=== PATIENT | male | born 1990 | race Caucasian/White ===

== ENCOUNTER 2021-01-30 21:10 | Emergency (ER) | payer SELFPAY ==
[2021-01-30] MEDS ORDERED: TETRACAINE HCL 0.5% 4ML OPTH ONE (23:13)
[2021-01-30] MEDS ORDERED: FLUORESCEIN SODIUM 1 MG/WRAP ONE (23:13)
--- NOTE | 2021-01-30 23:30 | ER ---
Nurse's Notes [facility] Name: Arik Perez Age: 30 yrs Sex: Male : 1990 Arrival Date: 01/30/2021 Time: 21:19 Bed 18 Private MD: Diagnosis: Conjunctivitis Presentation: 01/30 21:36 Chief complaint: Patient states: My dog scratched my L eye yesterday evening. It's claw ca1 got into my eye, it's been tearing up and it hurts. Reports able to see on the L eye. Patch on L eye placed by pt [employer]. Coronavirus screen: Client denies travel out of the [place] in the last 14 days. At this time, the client does not indicate any symptoms associated with coronavirus-19. Ebola Screen: Patient negative for fever greater than or equal to 101.5 degrees Fahrenheit, and additional compatible Ebola Virus Disease symptoms Patient denies exposure to infectious person. Patient denies travel to an Ebola-affected area in the 21 days before illness onset. No symptoms or risks identified at this time. The patient denies any loss of vision. Initial Sepsis Screen: Does the patient meet any 2 criteria? No. Patient's initial sepsis screen is negative. Does the patient have a suspected source of infection? No. Patient's initial sepsis screen is negative. Risk Assessment: Do you want to hurt yourself or someone else? Patient reports no desire to harm self or others. Onset of symptoms was January 30, 2021. 21:36 Method Of Arrival: Ambulatory ca1 21:36 Acuity: TIMI 4 ca1 23:59 Mechanism of Injury: dog scratched eye. zb Historical: - Allergies: 21:38 Ibuprofen; ca1 - Home Meds: 21:38 None [Active]; ca1 - PMHx: 21:38 None; ca1 - PSHx: 21:38 Ear Tubes; ca1 - Immunization history:: Client reports having NOT received the Covid vaccine. Flu vaccine is up to date. - Social history:: Smoking status: Patient reports the use of cigarette tobacco products, smokes one-half pack cigarettes per day. Screenin:57 Abuse screen: Denies threats or abuse. Denies injuries from another. Nutritional zb screening: No deficits noted. Tuberculosis screening: No symptoms or risk factors identified. Fall Risk None identified. Assessment: 23:57 General: Appears in no apparent distress. uncomfortable, Behavior is calm, cooperative, zb appropriate for age. Pain: Complains of pain in left eye Pain currently is 4 out of 10 on a pain scale. Neuro: No deficits noted. Cardiovascular: No deficits noted. Respiratory: No deficits noted. GI: No deficits noted. : No deficits noted. EENT: Eyes are tearing on left eye Sclera/Cornea are reddened in left eye. Derm: Skin is intact, is healthy with good turgor, Skin is dry, Skin is normal, Skin temperature is warm. Musculoskeletal: Range of motion: intact in all extremities. Vital Signs: 21:36 BP 135 / 94; Pulse 87; Resp 16 S; Temp 98.5(TE); Pulse Ox 99% on R/A; Weight 61.23 kg ca1 (R); Height 5 ft. 11 in. (180.34 cm) (R); Pain 5/10; 21:36 Body Mass Index 18.83 (61.23 kg, 180.34 cm) ca1 Visual Acuity: 23:58 Left Eye Visual acuity 20/20, Pupil size 3 mm, Normal, Reactive To Accomodation; Right zb Eye Visual acuity 20/20, Pupil size 3 mm, Normal, Reactive To Accomodation; Both Eyes Visual acuity 20/20; Without Lenses; ED Course: 21:19 Patient arrived in ED. bp1 21:38 Triage completed. ca1 21:38 Arm band placed on right wrist. ca1 22:31 Lexii Menon FNP-C is [facility]. kb 22:31 Desmond Rojas MD is Attending Physician. kb 23:29 Malini Kumar RN is Primary Nurse. zb 23:58 Patient has correct armband on for positive identification. Pulse ox on. NIBP on. Door zb closed. Noise minimized. 23:59 No provider procedures requiring assistance completed. Patient did not have IV access zb during this emergency room visit. Administered Medications: 22:53 Drug: Tetracaine Drops 0.5 % 1 drops {Note: Administered by ECP .} Route: Ophthalmic; zb Site: left eye; 23:52 Not Given (Physician Discretion): Polysporin (bacitracin-polymyxin) Ointment 1 zb application Ophthalmic once 23:56 Drug: Tobrex (tobramycin) 0.3 % 1 application Route: Ophthalmic; Site: left eye; zb Outcome: 23:29 Discharge ordered by MD. fraser 23:59 Discharged to home ambulatory. pamela 23:59 Condition: stable 23:59 Discharge instructions given to patient, Instructed on discharge instructions, follow up and referral plans. medication usage, Demonstrated understanding of instructions, follow-up care, medications. 23:59 Patient left the ED. pamela Signatures: Lexii Menon, TREASURE-C BLOCK HAND-Jayde Celestin RN RN Lauren Lechuga Zipporah, RN RN pamela
--- NOTE | 2021-01-30 23:30 | EDPHYS ---
Physician Documentation [facility] Name: Arik Perez Age: 30 yrs Sex: Male : 1990 Arrival Date: 01/30/2021 Time: 21:19 Bed 18 Private MD: ED Physician Desmond Rojas HPI: 01/31 00:06 This 30 yrs old Male presents to ER via Ambulatory with complaints of Eye kb Injury, Dog Scratched Eye. 00:06 The patient is experiencing matting or discharge, redness, The patient sustained a kb scratch, to the left eye, caused by dog claw. Onset: The symptoms/episode began/occurred yesterday. Duration: the symptoms are continuous. Aggravated by nothing. Alleviated by nothing. Associated signs and symptoms: Pertinent positives: None. Patient does not utilize any form of vision correction. Severity of symptoms: At their worst the symptoms were moderate in the emergency department the symptoms are unchanged. The patient has not experienced similar symptoms in the past. The patient has not recently seen a physician. Pt reports his dog scratched him in the eye yesterday. Reports watering and redness to eye. No visual changes. Historical: - Allergies: 01/30 21:38 Ibuprofen; ca1 - Home Meds: 21:38 None [Active]; ca1 - PMHx: 21:38 None; ca1 - PSHx: 21:38 Ear Tubes; ca1 - Immunization history:: Client reports having NOT received the Covid vaccine. Flu vaccine is up to date. - Social history:: Smoking status: Patient reports the use of cigarette tobacco products, smokes one-half pack cigarettes per day. ROS: 01/31 00:09 Constitutional: Negative for fever, chills, and weight loss, ENT: Negative for injury, kb pain, and discharge, Skin: Negative for injury, rash, and discoloration, Neuro: Negative for headache, weakness, numbness, tingling, and seizure. Eyes: Positive for redness, tearing. Exam: 00:08 Visual Acuity: I have reviewed the nursing documentation. Visual acuity is within kb normal limits. 00:08 Constitutional: This is a well developed, well nourished patient who is awake, alert, and in no acute distress. Head/Face: Normocephalic, atraumatic. ENT: Moist Mucous membranes Respiratory: Respirations even and unlabored. No increased work of breathing, no retractions or nasal flaring. Skin: Warm, dry with normal turgor. Normal color. MS/ Extremity: Pulses equal, no cyanosis. Neurovascular intact. Full, normal range of motion. Neuro: Awake and alert, GCS 15, oriented to person, place, time, and situation. Moves all extremities. Normal gait. Psych: Awake, alert, with orientation to person, place and time. Behavior, mood, and affect are within normal limits. 00:08 Eyes: Periorbital structures: appear normal, Pupils: equal, round, and reactive to light and accomodation, Extraocular movements: intact throughout, Conjunctiva: injected, in the left eye, Corneas: abrasion, is not appreciated, foreign body, is not appreciated, a fluorescein strip employed to appreciate the findings. Vital Signs: 01/30 21:36 BP 135 / 94; Pulse 87; Resp 16 S; Temp 98.5(TE); Pulse Ox 99% on R/A; Weight 61.23 kg ca1 (R); Height 5 ft. 11 in. (180.34 cm) (R); Pain 5/10; 21:36 Body Mass Index 18.83 (61.23 kg, 180.34 cm) ca1 Visual Acuity: 23:58 Left Eye Visual acuity 20/20, Pupil size 3 mm, Normal, Reactive To Accomodation; Right zb Eye Visual acuity 20/20, Pupil size 3 mm, Normal, Reactive To Accomodation; Both Eyes Visual acuity 20/20; Without Lenses; MDM: 22:31 Patient medically screened. kb 23:28 Data reviewed: vital signs, nurses notes. Data interpreted: Pulse oximetry: on room air kb is 99 %. Interpretation: normal. Counseling: I had a detailed discussion with the patient and/or guardian regarding: the historical points, exam findings, and any diagnostic results supporting the discharge/admit diagnosis, the need for outpatient follow up, an opthalmologist, to return to the emergency department if symptoms worsen or persist or if there are any questions or concerns that arise at home. 01/30 22:32 Order name: Visual Acuity; Complete Time: 23:57 kb 01/30 22:32 Order name: Eye Tray; Complete Time: 22:54 kb 01/30 22:32 Order name: Fluoresene Opth strip; Complete Time: 22:54 kb Administered Medications: 22:53 Drug: Tetracaine Drops 0.5 % 1 drops {Note: Administered by ECP .} Route: Ophthalmic; zb Site: left eye; 23:52 Not Given (Physician Discretion): Polysporin (bacitracin-polymyxin) Ointment 1 zb application Ophthalmic once 23:56 Drug: Tobrex (tobramycin) 0.3 % 1 application Route: Ophthalmic; Site: left eye; zb Disposition: 01/31 11:43 Co-signature as Attending Physician, Desmond Rojas MD I agree with the assessment and [facility] plan of care. Disposition: 01/30/21 23:29 Discharged to Home. Impression: Conjunctivitis. - Condition is Stable. - Discharge Instructions: Bacterial Conjunctivitis, [id number]. - Medication Reconciliation Form, Thank You Letter, Antibiotic Education, Prescription Opioid Use form. - Follow up: Emergency Department; When: As needed; Reason: Worsening of condition. Follow up: Private Physician; When: 2 - 3 days; Reason: Recheck today's complaints, Continuance of care, Re-evaluation by your physician. Signatures: Lexii Menon, SPRINKLER TENDER-C SPRINKLER TENDER-Angelob Desmond Rojas MD MD cha Acob, Cheryl RN Malini Conrad RN RN zb Corrections: (The following items were deleted from the chart) 01/30 23:59 23:29 01/30/2021 23:29 Discharged to Home. Impression: Conjunctivitis. Condition is zb Stable. Forms are Medication Reconciliation Form, Thank You Letter, Antibiotic Education, Prescription Opioid Use. Follow up: Emergency Department; When: As needed; Reason: Worsening of condition. Follow up: Private Physician; When: 2 - 3 days; Reason: Recheck today's complaints, Continuance of care, Re-evaluation by your physician. kb
[2021-01-31] MEDS ORDERED: TOBRAMYCIN SULF 0.3% OPTH OINT ONE (00:08)
[2021-01-31 00:34] VITALS: BP 135/94; TEMP 98.5; O2SAT 99
== END 2021-01-30 23:59 | disposition home or self-care (01) ==
LOC: ER 21:10
DX: H10.9 Unspecified conjunctivitis (principal); F17.210 Nicotine dependence, cigarettes, uncomplicated; Z88.6 Allergy status to analgesic agent
CPT/HCPCS: 99283

== ENCOUNTER 2023-05-30 12:32 | Emergency (ER) | payer SELFPAY ==
--- OUTSIDE RECORDS SUMMARY | 2023-05-30 12:34 | XMS REPORT | Continuity of Care Document ---
:1990 Author Organization [facility] t Address [address] [place] [id number] Care Team Providers Name Role Phone RUDOLPH ZAMARRIPA Primary Care Physician Unavailable Bella MALDONADO Attending Clinician Unavailable Bella Cevallos Attending Clinician SONIA DYE Attending Clinician Unavailable Lab, [facility] Attending Clinician Unavailable Sonia Ramirez Attending Clinician Marcy Curiel Attending Clinician MARCY ZURITA Attending Clinician Unavailable Doctor Unassigned, [place] Attending Clinician Unavailable RUDOLPH ZAMARRIPA M.D., Lizzie GALDAMEZ Attending Clinician UnavailRUDOLPH Hogan M.D., Lizzie GALDAMEZ Admitting Clinician Unavailjade guzman Payers Payer Name Policy Type Policy Number Effective Date Expiration Date S jorge a [employer] [id number] 2021 RADHA 0-100% 00:00:00 Problems Condition Condition Condition Status Onset Resolution Last Treating Co mments Source Name Details Category Date Date Treatment Clinician Date Penile Penile Disease Active 2020-09 Univers discharge discharge 0-13 ity of 00:00: [place] 00 [facility] Exposure Exposure Disease Active 2020-09 Unive rs to to 0-13 ity of sexually sexually 00:00: [place] transmitte transmitte 00 Me dical d disease d disease Bran ch (STD) (STD) Tobacco Tobacco Disease Active 2020-09 Univers use use 0-13 ity of 00:00: [place] 00 [facility] Allergies, Adverse Reactions, Alerts Allergy Allergy Status Severity Reaction(s) Onset Inactive Treating Comm ents Source Name Type Date Date Clinician Debora Propensi Active Unknown - 2020-09 Uni vers n ty to See comments 0-13 ity of adverse 00:00: [place] reaction 00 [facility] IBUPROFE DRUG Active Unknown-Cmnt 2020-09 Un betsy N INGREDI 0-13 ity of 00:00: [place] 00 [facility] NO KNOWN Drug Active Univers ALLERGIE Class ity of [facility] Social History Social Habit Start Date Stop Date Quantity Comments Source History of Cigarette Smoker Universi ty of tobacco use [facility] Exposure to 2022-09-29 2022-10-09 Not sure [facility] SARS-CoV-2 00:00:00 13:22:00 [facility] (event) [place] Alcohol intake 2022-10-09 2022-10-09 Ex-drinker [facility] 00:00:00 00:00:00 (finding) [facility] Tobacco use and 2021-06-25 2021-06-25 Smokeless tobacco Un iversity of exposure 00:00:00 00:00:00 non-user [facility] Sex Assigned At [birth year] Universit y of 00:00:00 00:00:00 [facility] Smoking Status Start Date Stop Date Source Smokes tobacco daily 2021-06-25 00:00:00 Univers ity [facility] Medications Ordered Filled Start Stop Current Ordering Indication Dosage Frequency Signature Comments Components Source Medication Medication Date Date Medication? Clinician (SIG) Name Name cefTRIAXone 2022- No 500mg 500 mg, U nivers (ROCEPHIN) 10-09 Intramuscu it y of injection 20:00: 19:18 [place], [place]CE, [place] 500 mg 00 :00 1 dose, On Medical Fri Branch 10/09/22 at 1400, JOSE FRANCISCO
Re ason for Anti-Infec tive: Documented Infection< br>Documen tony Infection Site: Urine
D uration of Therapy: Other (see Comments) doxycycline 2022- No 100mg 100 mg, U nivers hyclate 10-09 Oral, ity of (Vibramycin 19:15: 19:19 [place]CE, 1 [place] capsule 00 :00 dose, On Medica l 100 mg Fri Branch 10/09/22 at 1315, JOSE FRANCISCO
Re ason for Anti-Infec tive: Documented Infection< br>Documen tony Infection Site: Urine
D uration of Therapy: 10 days doxycycline 3-0 Yes [id number] 100mg Take 1 Univers hyclate 100 1-27 capsule by it y of mg capsule 00:00: mouth in [place] 00 the Medical morning Branch and 1 capsule in the evening. cefTRIAXone 2020-09- No [id number] 500mg Univers (ROCEPHIN) 0-13 10-13 ity of injection 15:45: 15:11 [place] 500 mg 00 :00 [facility] cefTRIAXone 2020-09- No [id number] 500mg 500 mg, Univers (ROCEPHIN) 0-13 10-13 Intramuscu it y of injection 15:45: 15:11 lar, ONCE, [place] 500 mg 00 :00 1 dose, On Medical Wed Branch 06/25/21 at 1045, JOSE FRANCISCO
Re ason for Anti-Infec tive: Documented Infection< br>Documen tony Infection Site: Other
O ther site:
Dura tion of Therapy: Other (see Comments) cefTRIAXone 2020-09- No [id number] 500mg Univers (ROCEPHIN) 0-13 10-13 ity of injection 15:45: 15:11 [place] 500 mg 00 :00 [facility] cefTRIAXone 2020-09- No [id number] 500mg 500 mg, Univers (ROCEPHIN) 0-13 10-13 Intramuscu it y of injection 15:45: 15:11 lar, ONCE, [place] 500 mg 00 :00 1 dose, On Medical Wed Branch 06/25/21 at 1045, JOSE FRANCISCO
Re ason for Anti-Infec tive: Documented Infection< br>Documen tony Infection Site: Other
O ther site:
Dura tion of Therapy: Other (see Comments) No known 2020-09 No Univers medications 0-13 ity of 09:43: [place] [facility] Branch No known 2020-09 No Univers medications 0-13 ity of 09:43: [place] [address] Medical Branch No known 2020-09 No Univers medications 0-13 ity of 09:43: [place] [address] Medical Branch azithromyci 2020-09- No [id number] 1000mg Take 2 Univers n 0-13 10-14 tablets by ity of (ZITHROMAX) 00:00: 04:59 mouth once [place] 500 mg 00 :00 now for 1 Medical tablet dose. Branch azithromyci 2020-09- No [id number] 1000mg Take 2 Univers n 0-13 10-14 tablets by ity of (ZITHROMAX) 00:00: 04:59 mouth once [place] 500 mg 00 :00 now for 1 Medical tablet dose. Branch Vital Signs Vital Name Observation Time Observation Value Comments Source Systolic blood 2022-10-09 17:53:00 126 mm[Hg] Univer [facility] Diastolic blood 2022-10-09 17:53:00 84 mm[Hg] Unive rs[facility] Heart rate 2022-10-09 17:53:00 80 /min [facility] Body temperature 2022-10-09 17:53:00 37 Luz Maria [facility] Respiratory rate 2022-10-09 17:53:00 18 /min [facility] Body height 2022-10-09 17:53:00 180.3 cm [facility] Body weight 2022-10-09 17:53:00 78.472 kg [facility] BMI 2022-10-09 17:53:00 24.13 kg/m2 [facility] Oxygen saturation in 2022-10-09 17:53:00 100 /min [facility] Arterial blood by [facility] Pulse oximetry Branch Systolic blood 2021-06-25 14:21:00 133 mm[Hg] Univer [facility] Diastolic blood 2021-06-25 14:21:00 88 mm[Hg] Unive rs[facility] Heart rate 2021-06-25 14:21:00 91 /min [facility] Body temperature 2021-06-25 14:21:00 36.72 Luz Maria [facility] Res[facility] rate 2021-06-25 14:21:00 18 /min [facility] Body height 2021-06-25 14:21:00 180.3 cm Universi ty [facility] Body weight 2021-06-25 14:21:00 76.885 kg [facility] BMI 2021-06-25 14:21:00 23.64 kg/m2 [facility] Procedures Procedure Date / Time Performed Performing Clinician Sourc e NOTICE OF PRIVACY 2022-10-09 18:55:18 Doctor Unassigned, No Univ [facility] PRACTICES Name [facility] URINALYSIS 2022-10-09 18:16:00 Bella Maldonado [facility] o f [facility] CONSENT/REFUSAL FOR 2022-10-09 17:45:26 Doctor Unassigned, No [place] [facility] DIAGNOSIS AND Name [facility] TREATMENT Encounters Start End Encounter Admission Attending Care Care Encounter Source Date/Time Date/Time Type Type Clinicians Facility Department ID 2022-10-09 2022-10-09 Emergency X Bella MALDONADO [facility] ERT [id number] Univers 11:54:00 13:23:00 ity of [facility] 2022-10-09 2022-10-09 Emergency Bella Maldonado [facility] [id number] Univers 11:54:00 13:23:00 Carissa MCKEE [id number] i ty [facility] [id number] [facility] [id number] [address] 2021-09-25 2021-09-25 Outpatient R MARNIE [facility] [id number] Univers 08:30:00 08:56:29 SONIA mcdermott o f [facility] 2021-09-25 2021-09-25 Torpedo Worker Lab, [facility] [id number]. [id number] Univers 08:30:00 08:56:29 Visit Sonia Dye R HOUSE SUPERVISOR [id number] [facility] [id number] [facility] [facility] as MATERNAL [id number] Med ical & CHILD [address] [place] [address] 2021-07-09 2021-07-09 Telephone [facility] [id number] Univers 00:00:00 00:00:00 Marcy N HOUSE SUPERVISOR [id number] it y of [facility] 4.2.7.2.686 [place] as MATERNAL [id number] [facility] & [address] 2021-06-26 2021-06-26 Telephone [facility] [id number] Univers 00:00:00 00:00:00 Marcy N HOUSE SUPERVISOR [id number] it y of [facility] 4.2.7.2.686 [place] as MATERNAL [id number] [address] 2021-06-25 2021-06-25 Office [facility] [id number] Univers 09:10:22 10:07:11 Visit Marcy Brown HOUSE SUPERVISOR [id number] it y of [facility] [id number] [place] as MATERNAL [id number] [address] 2021-06-25 2021-06-25 Outpatient R [facility] [id number] Univers 09:00:00 09:00:00 MARCY mcdermott [facility] 2021-06-25 2021-06-25 Orders Doctor BELIA [id number] Univers 00:00:00 00:00:00 Only Unassigned, [place] [id number] ity of [place] [address]686 [place] as [id number] [address] 2017-11-07 2017-11-07 Outpatient RUDOLPH ZAZUETA [facility] [address]IAN[id number] 08:56:00 08:56:00 , Lizzie [facility] Results This patient has no known results. Notes Date/Time Note Provider Source 2017-11-08 07:44:31-00:00 [facility] Operative Report/Procedure PATIENT NAME: FLAQUITO VALENTINO PHYSICIAN: Rudolph wagoner MD Admitted: MR NUMBER: [id number] DISCHARGED: DATE OF SURGERY: 11/07/2017 PREOPERATIVE DIAGNOSES: 1. Right thumb wound, code S61.001D. 2. Right index finger wound, code S61.200D. 3. Right index finger laceration of flexor tendo ns, both FDS and FDP, code S66.120D. 4. Right index finger laceration of ulnar digita l nerve, code S64.490D. 5. Right index laceration of ulnar digital arter y, code S65.510D. POSTOPERATIVE DIAGNOSES: 1. Right thumb wound, code S61.001D. 2. Right index finger wound, code S61.200D. 3. Right index finger laceration of flexor tendo ns, both FDS and FDP, code S66.120D. 4. Right index finger laceration of ulnar digita l nerve, code S64.490D. 5. Right index laceration of ulnar digital arter y, code S65.510D. OPERATIVE PROCEDURE: 1. Right thumb wound debridement and secondary r epair, code 11191. 2. Right index wound debridement, code 52369. 3. Right index repair of flexor digitorum superf icialis, code 00968. 4. Right index repair of flexor digitorum profun dus, code 32195. 5. Right index repair of ulnar proper digital ar vince, code 49938/96044 under operating microscope. 6. Right index repair of ulnar proper digital ne rve, code 56719/63069 under operating microscope. SURGEON: Rudolph Zamarripa MD ANESTHESIA: General. INDICATION FOR SURGERY: A 27-year-old male, lacerated himself with a kit quiros knife, thumb and index, lost all capacity for flexion, and went numb on the ulnar side of the digit, bled consistent with arterial laceration, stoppe d soon thereafter with pressure and dressing, seen in the ER, identifie d for injuries, referred here for definitive surgical repair. Now with the pat ient and family members ahead of time, explained everything to them in g reat detail, including all about extending the wounds to capture the tendon s proximally and distally, make the repairs, explained about no added pinch grasp to the tendons early after repair can cause rupture, the importance o f getting into early therapy and making full range gliding exercises with min imal force, no direct pressure over the nerve junctional site that can disrupt the nerve repair, all the important factors he needs to know along with the ten page written packet of instructions, made sure they had no qu estions. They confirmed they understood everything well. [facility] Operative Report/Procedure PATIENT NAME: FLAQUITO VALENTINO PHYSICIAN: Rudolph wagoner MD Admitted: MR NUMBER: [id number] DISCHARGED: DATE OF SURGERY: 11/07/2017 PREOPERATIVE DIAGNOSES: 1. Right thumb wound, code S61.001D. 2. Right index finger wound, code S61.200D. 3. Right index finger laceration of flexor tendo ns, both FDS and FDP, code S66.120D. 4. Right index finger laceration of ulnar digita l nerve, code S64.490D. 5. Right index laceration of ulnar digital arter y, code S65.510D. POSTOPERATIVE DIAGNOSES: 1. Right thumb wound, code S61.001D. 2. Right index finger wound, code S61.200D. 3. Right index finger laceration of flexor tendo ns, both FDS and FDP, code S66.120D. 4. Right index finger laceration of ulnar digita l nerve, code S64.490D. 5. Right index laceration of ulnar digital arter y, code S65.510D. OPERATIVE PROCEDURE: 1. Right thumb wound debridement and secondary r epair, code 40678. 2. Right index wound debridement, code 02148. 3. Right index repair of flexor digitorum superf icialis, code 87793. 4. Right index repair of flexor digitorum profun dus, code 95371. 5. Right index repair of ulnar proper digital ar vince, code 36149/25615 under operating microscope. 6. Right index repair of ulnar proper digital ne rve, code 86396/05549 under operating microscope. SURGEON: Rudolph Zamarripa MD ANESTHESIA: General. INDICATION FOR SURGERY: A 27-year-old male, lacerated himself with a kit quiros knife, thumb and index, lost all capacity for flexion, and went numb on the ulnar side of the digit, bled consistent with arterial laceration, stoppe d soon thereafter with pressure and dressing, seen in the ER, identifie d for injuries, referred here for definitive surgical repair. Now with the pat ient and family members ahead of time, explained everything to them in g reat detail, including all about extending the wounds to capture the tendon s proximally and distally, make the repairs, explained about no added pinch grasp to the tendons early after repair can cause rupture, the importance o f getting into early therapy and making full range gliding exercises with min imal force, no direct pressure over the nerve junctional site that can disrupt the nerve repair, all the important factors he needs to know along with the ten page written packet of instructions, made sure they had no qu estions. They confirmed they understood everything well. Patient Name: FLAQUITO VALENTINO Account Number: [id number] DESCRIPTION OF SURGERY: He was taken to the OR, prepped and draped steri erick under tourniquet control. Started with the thumb wound debridement. Distal margin is tattered, irregular, and obliquely cut. Both margins were then trimmed away at the submillimeter level with a sharp 15 blade. Depth of the wound was cleaned thoroughly with tenotomies, rongeur and sterile sponges. Verified that there was no deep structural injury. Skin wounds close d with 5-0 nylon. Attention turned to the index. Same steps were t aken at skin, subcutaneous level and deep fascia level, trimming tattered f ascia and tattered edges of the sheath to keep the proximal 70 percent of th e A2 intact and all of the A4 intact, the lacerations occurring in between, th e rest of that sheath is disrupted by the injury. Confirmed the integrity of the radial neurovascular bundle, confirmed complete laceration of the uln ar neurovascular bundle. Wound was extended exactly as explained, proxima l and distal on the ulnar side, tacking back the skin flaps. It is not pos sible to reach the flexors, reaching down inside the A2 lucia. Therefore, n ecessary to make a separate oblique cut over the proximal end of the A1. Her e, we captured the tendons, feed them back down to the lucia system keeping A1 and A2 intact, exiting now at the distal end of A2, captured here, draw n out. First, the FDS, pinned against retraction, abutting the 2 tails. The injury occurs just at the flat section of decussating fibers rather th an independent 2 tails. Therefore, we have a continuous repair across gina th distally. The 2 tails were proximally to continuous sheet of tissue. 4-0 PDS was used for this repair. We used triple locks both proxi mal and distal, both on the radial and ulnar sides, done in a fashion that d id not bunch or gather the tendons, but keeps the profile flat, which provi sofya a floor over which the FDP will have excursion. The knots were hidden o n the dorsal side of the FDS repair so that only the running portion and the locks that present themselves in a volar direction, that way there was no excu rsion of the FDP catching on the knots that repair the FDS. We then switched out and pulled the FDP out to length, pinned it against retraction, curbed epitenon first, 6-0 PDS repair, all except the volar section, left open for the knot tying and then the strength core sutures with 3-0 Ethibond, use d triple locks independently, pre-tensioned in each of the 4 lock points, radi al and ulnar, proximal and distal, greater than a centimeter away from the junctional line, and with independent pre-tensioning, the tension is share d correctly, 5 square knot rows within the repair site and then finishing o ff the epitenon, captures the knot and buries it in there, so there is nothing to interfere with excursion. Smooth profile tendon. We then tested its excur jann, it does not bind on to the A4 lucia distally or the A2 lucia proximal ly and does not catch against the FDS. We have a smooth excursion. Both tendon s are free, tested against full extension, repeat of cycles and there was n o gapping, a strong repair, ready for normal proactive full range therapy pr ogram that is standard for this practice. Scope was brought in at that poin t in time. Micro background Patient Name: FLAQUITO VALENTINO Account Number: [id number] DESCRIPTION OF SURGERY: He was taken to the OR, prepped and draped steri erick under tourniquet control. Started with the thumb wound debridement. Distal margin is tattered, irregular, and obliquely cut. Both margins were then trimmed away at the submillimeter level with a sharp 15 blade. Depth of the wound was cleaned thoroughly with tenotomies, rongeur and sterile sponges. Verified that there was no deep structural injury. Skin wounds close d with 5-0 nylon. Attention turned to the index. Same steps were t aken at skin, subcutaneous level and deep fascia level, trimming tattered f ascia and tattered edges of the sheath to keep the proximal 70 percent of th e A2 intact and all of the A4 intact, the lacerations occurring in between, th e rest of that sheath is disrupted by the injury. Confirmed the integrity of the radial neurovascular bundle, confirmed complete laceration of the uln ar neurovascular bundle. Wound was extended exactly as explained, proxima l and distal on the ulnar side, tacking back the skin flaps. It is not pos sible to reach the flexors, reaching down inside the A2 lucia. Therefore, n ecessary to make a separate oblique cut over the proximal end of the A1. Her e, we captured the tendons, feed them back down to the lucia system keeping A1 and A2 intact, exiting now at the distal end of A2, captured here, draw n out. First, the FDS, pinned against retraction, abutting the 2 tails. The injury occurs just at the flat section of decussating fibers rather th an independent 2 tails. Therefore, we have a continuous repair across gina th distally. The 2 tails were proximally to continuous sheet of tissue. 4-0 PDS was used for this repair. We used triple locks both proxi mal and distal, both on the radial and ulnar sides, done in a fashion that d id not bunch or gather the tendons, but keeps the profile flat, which provi sofya a floor over which the FDP will have excursion. The knots were hidden o n the dorsal side of the FDS repair so that only the running portion and the locks that present themselves in a volar direction, that way there was no excu rsion of the FDP catching on the knots that repair the FDS. We then switched out and pulled the FDP out to length, pinned it against retraction, curbed epitenon first, 6-0 PDS repair, all except the volar section, left open for the knot tying and then the strength core sutures with 3-0 Ethibond, use d triple locks independently, pre-tensioned in each of the 4 lock points, radi al and ulnar, proximal and distal, greater than a centimeter away from the junctional line, and with independent pre-tensioning, the tension is share d correctly, 5 square knot rows within the repair site and then finishing o ff the epitenon, captures the knot and buries it in there, so there is nothing to interfere with excursion. Smooth profile tendon. We then tested its excur jann, it does not bind on to the A4 lucia distally or the A2 lucia proximal ly and does not catch against the FDS. We have a smooth excursion. Both tendon s are free, tested against full extension, repeat of cycles and there was n o gapping, a strong repair, ready for normal proactive full range therapy pr ogram that is standard for this practice. Scope was brought in at that poin t in time. Micro background Patient Name: FLAQUITO VALENTINO Account Number: [id number] is set, micro instruments are used to trim off t he traumatized ends of all 4 ends, to artery, to nerve, repair the artery fir st as it is deeper, brought in a clamp, used vessel dilator, stripped the ad ventitia, irrigated the vessel lumens to confirm its quality intima, rep aired using one way up with a 10-0 nylon suture. No problems. Took off the c lamps, retrimmed the nerve endings with serrated scissors, perpendicular, u sed 9-0 nylon at this time, epineurial sleeve repair and before placing the final suture, we trimmed the fascicles, from both proximal and distal ends to ensure that there is neither crimps nor escaping fascicle and it is a smooth tubular sleeve encasing all the fascicles for crossing to the other side and proper matching. This repair was tested against full length excursion as well and particularly important the nerve does not come under excess t ension when the digit is in full extension, so we can follow a normal tendon rehabilitation program. Index wounds and the palm wound were closed with 5-0 nylon suture. Dressings were applied. Xeroform gauze and Coban to dress the wounds initially, followed by Webril, and an Intrinsic Plus protec tive splint for the flexor tendons in the normal fashion. MD ELADIA Harrell/DAVY/CELESTINA/CELESTINA/BAL TD: 11/07/2017 16:20 CC:Rudolph Zamarripa MD(Memorop) Patient Name: FLAQUITO VALENTINO Account Number: [id number] is set, micro instruments are used to trim off t he traumatized ends of all 4 ends, to artery, to nerve, repair the artery fir st as it is deeper, brought in a clamp, used vessel dilator, stripped the ad ventitia, irrigated the vessel lumens to confirm its quality intima, rep aired using one way up with a 10-0 nylon suture. No problems. Took off the c lamps, retrimmed the nerve endings with serrated scissors, perpendicular, u sed 9-0 nylon at this time, epineurial sleeve repair and before placing the final suture, we trimmed the fascicles, from both proximal and distal ends to ensure that there is neither crimps nor escaping fascicle and it is a smooth tubular sleeve encasing all the fascicles for crossing to the other side and proper matching. This repair was tested against full length excursion as well and particularly important the nerve does not come under excess t ension when the digit is in full extension, so we can follow a normal tendon rehabilitation program. Index wounds and the palm wound were closed with 5-0 nylon suture. Dressings were applied. Xeroform gauze and Coban to dress the wounds initially, followed by Webril, and an Intrinsic Plus protec tive splint for the flexor tendons in the normal fashion. 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
[2023-05-30] MEDS ORDERED: TDAP (DIPHTH,PERTUSS(ACELL),TET VAC) 0.5 ML VIAL IMVAC ONE (13:29)
[2023-05-30] MEDS ORDERED: ONDANSETRON 4 MG (ODT) TAB ONE (13:29)
[2023-05-30] MEDS ORDERED: ACETAMINOPHEN 500 MG TAB ONE (13:29)
--- NOTE | 2023-05-30 14:44 | RAD REPORT ---
EXAM DESCRIPTION: CT - [id number] - 05/30/2023 1:55 pm CLINICAL HISTORY: TRAUMA COMPARISON: No comparisons TECHNIQUE: Axial thin cut noncontrast CT images of the head were obtained. Axial thin cut noncontrast CT images of the cervical spine were obtained. Multiplanar reformatted images were generated and reviewed. All CT scans are performed using dose optimization technique as appropriate and may include automated exposure control or mA/KV adjustment according to patient size. FINDINGS: CT HEAD WITHOUT CONTRAST: No acute hemorrhage, hydrocephalus or extra-axial collection is identified.No areas of brain edema or midline shift. The paranasal sinuses show patchy opacification mainly along the anterior ethmoidal air cells. Partia l opacification of the right mastoid air cells. . Left frontal scalp soft tissue swelling and possibl e laceration. The calvarium is intact. CT CERVICAL SPINE WITHOUT CONTRAST: No fracture or subluxation.No prevertebral soft tissues swelling is identified. IMPRESSION: No acute traumatic intracranial or cervical spine findings. Left frontal scalp soft tissue swelling and possible laceration.
--- NOTE | 2023-05-30 15:50 | EDPHYS ---
Physician Documentation [facility] Name: Arik Perez Age: 32 yrs Sex: Male : 1990 Arrival Date: 05/30/2023 Time: 12:32 Bed 3 Private MD: ED Physician Deysi Raymundo HPI: 05/30 13:12 This 32 yrs old Male presents to ER via Ambulatory with complaints of Head Injury-Adult.ci 13:12 Patient presents for evaluation of laceration after head injury. 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 No LOC, no blood thinners. Patient felt woozy and nauseous after. Tetanus status unknown. Historical: - Allergies: 12:41 Ibuprofen; hb - Home Meds: 12:41 None [Active]; hb - PMHx: 12:41 None; hb - PSHx: 12:41 None; hb - Immunization history:: Adult Immunizations up to date. - Social history:: Smoking status: Patient reports the use of cigarette tobacco products, smokes one pack cigarettes per day. ROS: 13:12 Constitutional: Negative for fever, chills, and weight loss, Eyes: Negative for injury, ci pain, redness, and discharge, ENT: Negative for injury, pain, and discharge, Neck: Negative for injury, pain, and swelling, Cardiovascular: Negative for chest pain, palpitations, and edema, Respiratory: Negative for shortness of breath, cough, wheezing, and pleuritic chest pain, Abdomen/GI: Negative for abdominal pain, nausea, vomiting, diarrhea, and constipation, Back: Negative for injury and pain, MS/Extremity: Negative for injury and deformity, Skin: Negative for injury, rash, and discoloration. Positive laceration Neuro: Negative for headache, weakness, numbness, tingling, and seizure. Exam: 13:12 Constitutional: This is a well developed, well nourished patient who is awake, alert, ci and in no acute distress. Head/Face: Normocephalic, 1.5 cm supercial laceration to left parietal scalp Eyes: Pupils equal round and reactive to light, extra-ocular motions intact. Lids and lashes normal. Conjunctiva and sclera are non-icteric and not injected. Cornea within normal limits. Periorbital areas with no swelling, redness, or edema. ENT: Nares patent. No nasal discharge, no septal abnormalities noted. Tympanic membranes are normal and external auditory canals are clear. Oropharynx with no redness, swelling, or masses, exudates, or evidence of obstruction, uvula midline. Mucous membranes moist. Neck: Trachea midline, no thyromegaly or masses palpated, and no cervical lymphadenopathy. Supple, full range of motion without nuchal rigidity, or vertebral point tenderness. No Meningismus. Chest/axilla: Normal chest wall appearance and motion. Nontender with no deformity. No lesions are appreciated. Cardiovascular: Regular rate and rhythm with a normal S1 and S2. No gallops, murmurs, or rubs. No JVD, no pulse deficits. Respiratory: Lungs have equal breath sounds bilaterally, clear to auscultation and percussion. No rales, rhonchi or wheezes noted. No increased work of breathing, no retractions or nasal flaring. Abdomen/GI: Soft, non-tender, with normal bowel sounds. No distension or tympany. No guarding or rebound. No evidence of tenderness throughout. Back: No spinal tenderness. No costovertebral tenderness. Full range of motion. Skin: Warm, dry with normal turgor. Normal color with no rashes, no lesions, and no evidence of cellulitis. MS/ Extremity: Pulses equal, no cyanosis. Neurovascular intact. Full, normal range of motion. Neuro: Awake and alert, GCS 15, oriented to person, place, time, and situation. Cranial nerves II-XII grossly intact. Motor strength 5/5 in all extremities. Sensory grossly intact. Cerebellar exam normal. Normal gait. Psych: Awake, alert, with orientation to person, place and time. Behavior, mood, and affect are within normal limits. Vital Signs: 12:38 BP 129 / 98; Pulse 75; Resp 16; Temp 98; Pulse Ox 100% on R/A; Weight 77.56 kg; Height hb 5 ft. 11 in. ; Pain 8/10; 12:45 BP 127 / 89; Pulse 82; Resp 16; Pulse Ox 98% ; ko1 13:00 BP 126 / 94; Pulse 71; Resp 18; Pulse Ox 97% ; ko1 13:15 BP 136 / 85; Pulse 85; Resp 16; Pulse Ox 99% ; ko1 13:30 BP 119 / 89; Pulse 81; Resp 18; Pulse Ox 99% ; ko1 12:38 Body Mass Index 23.85 (77.56 kg, 180.34 cm) hb 12:38 Pain Scale: Adult hb Isabella Coma Score: 12:38 Eye Response: spontaneous(4). Motor Response: obeys commands(6). Verbal Response: hb oriented(5). Total: 15. 13:12 Eye Response: spontaneous(4). Motor Response: obeys commands(6). Verbal Response: ci oriented(5). Total: 15. MDM: 12:39 Patient medically screened. ci 13:12 Differential diagnosis: Contusion of Hematoma on Laceration of Intracranial bleed- ci Concussion without LOC. Data reviewed: vital signs, nurses notes, old medical records, radiologic studies, CT scan. Independent interpretation of the following test(s) in the Emergency Department CT Scan: My interpretation is No obvious ICH, no midline shift. Historians other than the Patient: Friend: . Care significantly affected by the following chronic conditions: none. Response to treatment: the patient's symptoms have mildly improved after treatment. 15:28 ED course: Patient requested to be discharged so he could go to his employer's ci affiliated facility for laceration repair and further management due to Worker's Comp .CT head unremarkable. Ok for discharge. 05/30 13:14 Order name: CT Head C Spine; Complete Time: 15:27 ci Administered Medications: 13:22 Drug: Ondansetron PO 4 mg Route: PO; ko1 13:40 Follow up: Response: No adverse reaction rs5 13:23 Drug: Tetanus-Diphtheria Toxoid IM Adult 0.5 ml {Counselor At Law: [employer] ([email or web address] ko1 Exp: 12/31/2024. Lot #: [id number]. } Route: IM; Site: right deltoid; 13:35 Follow up: Response: No adverse reaction rs5 13:23 Drug: Acetaminophen PO 1000 mg Route: PO; ko1 13:50 Follow up: Response: No adverse reaction rs5 Disposition Summary: 05/30/23 15:50 Discharge Ordered Location: Home ko1 Condition: Stable ko1 Diagnosis - Unspecified injury of head, initial encounter ko1 Forms: - Medication Reconciliation Form ko1 - Thank You Letter ko1 - Antibiotic Education ko1 - Prescription Opioid Use ko1 - Patient Portal Instructions ko1 - Leadership Thank You Letter ko1 Signatures: Dispatcher [employer] EDAlison Valdivia, RN RN Paulette Jade RN RN ko1 Iheellieuneknohemi HamletHaile Krishnan RN rs5 Corrections: (The following items were deleted from the chart) 05/31 10:25 05/30 13:12 Patient presents for evaluation of laceration after head injury. 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 No LOC, no blood thinners. Patient felt woozy and nauseous after. Tetanus status unknown. 05/31 10:29 05/30 15:28 ED course: Patient eloped because he has to go to his work affiliated ci facility due to Worker's Comp. CT head unremarkable.. 05/31 10:36 05/30 15:28 ED course: Patient eloped because he has to go to his work affiliated ci facility due to Worker's Comp. CT head unremarkable.. ci
--- NOTE | 2023-05-30 15:50 | ER ---
Nurse's Notes [facility] Name: Arik Perez Age: 32 yrs Sex: Male : 1990 Arrival Date: 05/30/2023 Time: 12:32 Bed 3 Private MD: Diagnosis: Unspecified injury of head, initial encounter Presentation: 05/30 12:38 Chief complaint: Hit in head with excavator bucket just [employer]. Negative LOC. C/o nausea hb and laceration to left side of head. Bleeding controlled. Coronavirus screen: At this time, the client does not indicate any symptoms associated with coronavirus-19. Ebola Screen: No symptoms or risks identified at this time. Initial Sepsis Screen: Does the patient meet any 2 criteria? No. Patient's initial sepsis screen is negative. Does the patient have a suspected source of infection? No. Patient's initial sepsis screen is negative. Risk Assessment: Do you want to hurt yourself or someone else? Patient reports no desire to harm self or others. 12:38 Method Of Arrival: Ambulatory hb 12:38 Acuity: TIMI 3 hb Historical: - Allergies: 12:41 Ibuprofen; hb - Home Meds: 12:41 None [Active]; hb - PMHx: 12:41 None; hb - PSHx: 12:41 None; hb - Immunization history:: Adult Immunizations up to date. - Social history:: Smoking status: Patient reports the use of cigarette tobacco products, smokes one pack cigarettes per day. Screenin:02 [facility] ED Fall Risk Assessment (Adult) History of falling in the last 3 months, ld1 including since admission No falls in past 3 months (0 pts). Abuse screen: Denies threats or abuse. Denies injuries from another. Nutritional screening: No deficits noted. Tuberculosis screening: No symptoms or risk factors identified. Assessment: 12:40 General: Appears in no apparent distress. comfortable, Behavior is calm, cooperative. rs5 12:40 Pain: Complains of pain in head Pain does not radiate. Pain currently is 8 out of 10 on rs5 a pain scale. Quality of pain is described as aching, Pain began 2 hours ago. Is continuous. Neuro: Level of Consciousness is awake, alert, obeys commands, Oriented to person, place, time, situation. Cardiovascular: Rhythm is regular. Respiratory: Airway is patent Respiratory effort is even, unlabored, Respiratory pattern is regular, symmetrical. GI: Abdomen is round non-distended, Abd is soft and non tender X 4 quads. : No signs and/or symptoms were reported regarding the genitourinary system. : No signs and/or symptoms were reported regarding the genitourinary system. EENT: No signs and/or symptoms were reported regarding the EENT system. Derm: Skin is pink, warm \\T\\ dry. 2 inch laceration noted to top of pt's head. Pt reports "I was working and something heavy fell on my head." Pt denies LOC, dizziness, N/V, blurry vision. No active bleeding noted. Musculoskeletal: Range of motion: intact in all extremities. 12:50 Reassessment: To bedside for wound cleansing. Laceration to top of head cleaned with rs5 normal saline, and Hibiclens . 14:45 Reassessment: Patient appears in no apparent distress at this time. No changes from ld1 previously documented assessment. Patient and/or family updated on plan of care and expected duration. Pain level reassessed. 14:45 Reassessment: Pt requesting to leave after testing - employer wants to take patient to ld1 their employee clinic. Notified ERP. Vital Signs: 12:38 BP 129 / 98; Pulse 75; Resp 16; Temp 98; Pulse Ox 100% on R/A; Weight 77.56 kg; Height hb 5 ft. 11 in. ; Pain 8/10; 12:45 BP 127 / 89; Pulse 82; Resp 16; Pulse Ox 98% ; ko1 13:00 BP 126 / 94; Pulse 71; Resp 18; Pulse Ox 97% ; ko1 13:15 BP 136 / 85; Pulse 85; Resp 16; Pulse Ox 99% ; ko1 13:30 BP 119 / 89; Pulse 81; Resp 18; Pulse Ox 99% ; ko1 12:38 Body Mass Index 23.85 (77.56 kg, 180.34 cm) hb 12:38 Pain Scale: Adult hb Dexter Coma Score: 12:38 Eye Response: spontaneous(4). Motor Response: obeys commands(6). Verbal Response: hb oriented(5). Total: 15. 13:12 Eye Response: spontaneous(4). Motor Response: obeys commands(6). Verbal Response: ci oriented(5). Total: 15. ED Course: 12:35 Patient arrived in ED. im 12:38 Deysi Raymundo is Attending Physician. ci 12:41 Triage completed. hb 12:41 Arm band placed on. hb 13:47 Haile Bravo, RN is Primary Nurse. rs5 13:55 CT Head C Spine In Process Unspecified. EDMS 15:02 Patient has correct armband on for positive identification. Placed in gown. Bed in low ld1 position. Call light in reach. Side rails up X2. Pulse ox on. NIBP on. Door closed. Noise minimized. Warm blanket given. 15:02 No provider procedures requiring assistance completed. ld1 15:47 Provided Education on: na. ko1 15:47 Patient did not have IV access during this emergency room visit. ko1 Administered Medications: 13:22 Drug: Ondansetron PO 4 mg Route: PO; ko1 13:40 Follow up: Response: No adverse reaction rs5 13:23 Drug: Tetanus-Diphtheria Toxoid IM Adult 0.5 ml {Prepper: [employer] ([employer]). ko1 Exp: 12/31/2024. Lot #: [id number]. } Route: IM; Site: right deltoid; 13:35 Follow up: Response: No adverse reaction rs5 13:23 Drug: Acetaminophen PO 1000 mg Route: PO; ko1 13:50 Follow up: Response: No adverse reaction rs5 Medication: 15:02 VIS not applicable for this client. ld1 Outcome: 15:47 Discharged to employers choice ko1 15:47 Condition: stable 15:47 Discharge instructions given to patient, Instructed on follow up and referral plans. Demonstrated understanding of follow-up care. 15:49 Discharged to home ambulatory. ld1 15:49 Condition: stable 15:49 Discharge instructions given to patient. 15:50 Discharge ordered by . ko1 15:50 Patient left the ED. ko1 Signatures: Dispatcher [employer] EDMS Alison Monteiro RN ALLYSON Abi Conway RN RN ld1 Paulette Jade RN RN ko1 Haile Bravo, ALLYSON RN rs5 Keely Murillo Deysi Raymundo ci
[2023-05-30 16:11] VITALS: TEMP 98
[2023-05-30 16:16] VITALS: O2SAT 99
[2023-05-30 16:18] VITALS: BP 119/89
== END 2023-05-30 15:50 | disposition home or self-care (01) ==
LOC: ER 12:32
DX: S09.90XA Unspecified injury of head, initial encounter (principal); Z23 Encounter for immunization
CPT/HCPCS: 70450; 72125; 90471; 99284; Q0162

== ENCOUNTER → 2023-09-24 | Emergency (ER) | payer SELFPAY ==
--- OUTSIDE RECORDS SUMMARY | 2023-09-24 07:52 | XMS REPORT | Continuity of Care Document ---
Author Name Unknown Address [address] [facility] [address] [place] [address] [facility] thconnect Address [address] [facility] [address] [place] [address] Care Team Providers Care Solder Making Supervisor Name Role Phone RUDOLPH ZAMARRIPA Primary Care Physician Unavailab Bella Alberto Attending Clinician Unavailable Bella Cevallos Attending Clinician [phone] SONIA DYE Attending Clinician Unavailab bangura Lab, Ang[facility] Attending Clinician Unavailable Sonia Ramirez Attending Clinician + [phone] Marcy Curiel Attending Clinician [phone] MARCY ZURITA Attending Clinician Unavailtd e Doctor Unassigned, [place] Attending Clinician U RUDOLPH Bradshaw M.D., Lizzie GALDAMEZ Attending Clinic wanda Unavailable RUDOLPH ZAMARRIPA M.D., Lizzie GALDAMEZ Admitting Clinic wanda Unavailable Payers Payer Name Policy Type Policy Number Effective Date Expirati on Date Source [employer] 0-100% [id number] 2021 00:00:00 Problems Condition Name Condition Details Condition Category Status Onset Date Resolution Date Last Treatment Date Treating Clinician Comments Source Penile discharge Penile discharge Disease Active 2020-09 00:00: 00 [facility] Exposure to sexually transmitte d disease (STD) Exposure to sexually transmitte d disease (STD) Disease Active 2020-09 00:00: 00 [facility] Tobacco use Tobacco use Disease Active 2020-09 00:00: 00 [facility] Allergies, Adverse Reactions, Alerts Allergy Name Allergy Type Status Severity Reaction(s) Onset Date Inactive Date Treating Clinician Comments Source Ibuprofe n Propensi ty to adverse reaction s Active Unknown - See comments 2020-09 00:00: 00 [facility] IBUPROFE N DRUG INGREDI Active Unknown-Cmnt 2020-09 00:00: 00 [facility] NO KNOWN ALLERGIE S Drug Class Active [facility] Social History Social Habit Start Date Stop Date Quantity Comments Source History of tobacco use Cigarette Smoker [facility] Exposure to SARS-CoV-2 (event) 2022-09-29 00:00:00 2022-10-09 13:22:00 Not sure [facility] Alcohol intake 2022-10-09 00:00:00 2022-10-09 00:00:00 Ex-drinker (finding) [facility] Tobacco use and exposure 2021-06-25 00:00:00 2021-06-25 00:00:00 Smokeless tobacco non-user [facility] Sex Assigned At 1990 00:00:00 1990 00:00:00 [facility] Smoking Status Start Date Stop Date Source Smokes tobacco daily 2021-06-25 00:00:00 [facility] Medications Ordered Medication Name Filled Medication Name Start Date Stop Date Current Medication? Ordering Clinician Indication Dosage Frequency Signature (SIG) Comments Components Source cefTRIAXone (ROCEPHIN) injection 500 mg 10-09 20:00: 00 10-09 19:18 :00 No 500mg 500 mg, Intramuscu lar, ONCE, 1 dose, On Wed10/09/22 at 1400, JOSE FRANCISCO
Re ason for Anti-Infec tive: Documented Infection< br>Documen tony Infection Site: Urine
D uration of Therapy: Other (see Comments) [facility] doxycycline hyclate (Vibramycin ) capsule 100 mg 10-09 19:15: 00 10-09 19:19 :00 No 100mg 100 mg, Oral, ONCE, 1 dose, On Wed10/09/22 at 1315, JOSE FRANCISCO
Re ason for Anti-Infec tive: Documented Infection< br>Documen tony Infection Site: Urine
D uration of Therapy: 10 days [facility] doxycycline hyclate 100 mg capsule 10-09 00:00: 00 Yes [id number] 100mg Take 1 capsule by mouth in the morning and 1 capsule in the evening. [facility] cefTRIAXone (ROCEPHIN) injection 500 mg 2020-09 15:45: 00 06-25 15:11 :00 No [id number] 500mg [facility] cefTRIAXone (ROCEPHIN) injection 500 mg 2020-09 15:45: 00 06-25 15:11 :00 No [id number] 500mg 500 mg, Intramuscu lar, ONCE, 1 dose, On Wed06/25/21 at 1045, JOSE FRANCISCO
Re ason for Anti-Infec tive: Documented Infection< br>Documen tony Infection Site: Other
O ther site:
Dura tion of Therapy: Other (see Comments) [facility] cefTRIAXone (ROCEPHIN) injection 500 mg 2020-09 15:45: 00 06-25 15:11 :00 No [id number] 500mg [facility] cefTRIAXone (ROCEPHIN) injection 500 mg 2020-09 15:45: 00 06-25 15:11 :00 No [id number] 500mg 500 mg, Intramuscu lar, ONCE, 1 dose, On Wed06/25/21 at 1045, JOSE FRANCISCO
Re ason for Anti-Infec tive: Documented Infection< br>Documen tony Infection Site: Other
O ther site:
Dura tion of Therapy: Other (see Comments) [facility] No known medications 2020-09 09:43: 54 No [facility] No known medications 2020-09 09:43: 54 No [facility] No known medications 2020-09 09:43: 54 No [facility] azithromyci n (ZITHROMAX) 500 mg tablet 2020-09 00:00: 00 06-26 04:59 :00 No [id number] 1000mg Take 2 tablets by mouth once now for 1 dose. [facility] azithromyci n (ZITHROMAX) 500 mg tablet 2020-09 00:00: 00 06-26 04:59 :00 No [id number] 1000mg Take 2 tablets by mouth once now for 1 dose. [facility] Vital Signs Vital Name Observation Time Observation Value Comments S jorge a Systolic blood pressure 2022-10-09 17:53:00 126 mm[Hg] [facility] Diastolic blood pressure 2022-10-09 17:53:00 84 mm[Hg] [facility] Heart rate 2022-10-09 17:53:00 80 /min [facility] Body temperature 2022-10-09 17:53:00 37 Luz Maria [facility] Respiratory rate 2022-10-09 17:53:00 18 /min [facility] Body height 2022-10-09 17:53:00 180.3 cm [facility] Body weight 2022-10-09 17:53:00 78.472 kg [facility] BMI 2022-10-09 17:53:00 24.13 kg/m2 [facility] Oxygen saturation in Arterial blood by Pulse oximetry 2022-10-09 17:53:00 100 /min [facility] Systolic blood pressure 2021-06-25 14:21:00 133 mm[Hg] [facility] Diastolic blood pressure 2021-06-25 14:21:00 88 mm[Hg] [facility] Heart rate 2021-06-25 14:21:00 91 /min [facility] Body temperature 2021-06-25 14:21:00 36.72 Luz Maria [facility] Respiratory rate 2021-06-25 14:21:00 18 /min [facility] Body height 2021-06-25 14:21:00 180.3 cm [facility] Body weight 2021-06-25 14:21:00 76.885 kg [facility] BMI 2021-06-25 14:21:00 23.64 kg/m2 [facility] Procedures Procedure Date / Time Performed Performing Clinicia n Source NOTICE OF PRIVACY PRACTICES 2022-10-09 18:55:18 Doctor Unassigned, [place] [facility] URINALYSIS 2022-10-09 18:16:00 Bella Maldonado [facility] CONSENT/REFUSAL FOR DIAGNOSIS AND TREATMENT 2022-10-09 17:45:26 Doctor Unassigned, [place] [facility] Encounters Start Date/Time End Date/Time Encounter Type Admission Type Attending [facility] Care Department Encounter ID Source 2022-10-09 11:54:00 2022-10-09 13:23:00 Emergency X Bella MALDONADO [facility] ERT [id number] [facility] 2022-10-09 11:54:00 2022-10-09 13:23:00 Emergency Bella Maldonado [facility] ..840.114 [id number] [id number] [facility] 2021-09-25 08:30:00 2021-09-25 08:56:29 Outpatient R SONIA DYE [facility] [id number] [facility] 2021-09-25 08:30:00 2021-09-25 08:56:29 Pcat Instructor Visit Lab, Ang-Rmchp Sonia Dye [facility] CIVIL TECHNICIAN [facility] & CHILD [facility] ..840.114 [id number] [id number] [id number] [facility] 2021-07-09 00:00:00 2021-07-09 00:00:00 Telephone Marcy Zurita [facility] CIVIL TECHNICIAN [facility] [id number] [id number] [id number] [facility] 2021-06-26 00:00:00 2021-06-26 00:00:00 Telephone Marcy Zurita [facility] CIVIL TECHNICIAN [facility] & CHILD [facility] [id number] [id number] [id number] [id number] [facility] 2021-06-25 09:10:22 2021-06-25 10:07:11 Office Visit Marcy Zurita [facility] CIVIL TECHNICIAN [facility] [id number] 350.1.13.10 [id number] [id number] [facility] 2021-06-25 09:00:00 2021-06-25 09:00:00 Outpatient R MARCY ZURITA [facility] [id number] [facility] 2021-06-25 00:00:00 2021-06-25 00:00:00 Orders Only Doctor Unassigned, [place] [facility] [id number] [id number] [id number] [id number] [facility] 2017-11-07 08:56:00 2017-11-07 08:56:00 Outpatient RUDOLPH ZAZUETA M.D. [facility] MARIANO [id number] [facility] Notes Date/Time Note Provider Source 2017-11-08 07:44:31 [id number]:44:31 [facility] Operative Report/ProcedurePATIENT NAME: FLAQUITO VALENTINO PHYSICIAN: Rudolph Zamarripa MD Admitted: MR NUMBER: [id number] DISCHARGED: DATE OF SURGERY: 11/07/2017PREOPERATIVE DIAGNOSES:1. Right thumb wound, code S61.001D.2. Right index finger wound, code S61.200D.3. Right index finger laceration of flexor tendons, both FDS and FDP, code S66.120D.4. Right index finger laceration of ulnar digital nerve, code S64.490D.5. Right index laceration of ulnar digital artery, code S65.510D.POSTOPERATIVE DIAGNOSES:1. Right thumb wound, code S61.001D.2. Right index finger wound, code S61.200D.3. Right index finger laceration of flexor tendons, both FDS and FDP, code S66.120D.4. Right index finger laceration of ulnar digital nerve, code S64.490D.5. Right index laceration of ulnar digital artery, code S65.510D.OPERATIVE PROCEDURE:1. Right thumb wound debridement and secondary repair, code 71850.2. Right index wound debridement, code 24310.3. Right index repair of flexor digitorum superficialis, code 75711.4. Right index repair of flexor digitorum profundus, code 25071.5. Right index repair of ulnar proper digital artery, code 94039/91844 under operating microscope.6. Right index repair of ulnar proper digital nerve, code 22157/06002 under operating microscope.SURGEON:Rudolph Zamarripa MDANESTHESIA:General.INDICATION FOR SURGERY:A 27-year-old male, lacerated himself with a kitchen knife, thumb and index, lost all capacity for flexion, and went numb on the ulnar side of the digit, bled consistent with arterial laceration, stopped soon thereafter with pressure and dressing, seen in the ER, identified for injuries, referred herefor definitive surgical repair. Now with the patient and family members ahead of time, explained everything to them in great detail, including all about extending the wounds to capture the tendons proximally and distally, make the repairs, explained about no added pinch grasp to the tendons early after repair can cause rupture, the importance of getting into early therapy and making full range gliding exercises with minimal force, no direct pressure over the nerve junctional site that can disrupt the nerve repair, all the important factors he needs to know along with the ten page written packet of instructions, made sure they had no questions. They confirmed theyunderstood everything well. [facility] Operative Report/ProcedurePATIENT NAME: FLAQUITO VALENTINO PHYSICIAN: Rudolph Zamarripa MD Admitted: MR NUMBER: [id number] DISCHARGED: DATE OF SURGERY: 11/07/2017PREOPERATIVE DIAGNOSES:1. Right thumb wound, code S61.001D.2. Right index finger wound, code S61.200D.3. Right index finger laceration of flexor tendons, both FDS and FDP, code S66.120D.4. Right index finger laceration of ulnar digital nerve, code S64.490D.5. Right index laceration of ulnar digital artery, code S65.510D.POSTOPERATIVE DIAGNOSES:1. Right thumb wound, code S61.001D.2. Right index finger wound, code S61.200D.3. Right index finger laceration of flexor tendons, both FDS and FDP, code S66.120D.4. Right index finger laceration of ulnar digital nerve, code S64.490D.5. Right index laceration of ulnar digital artery, code S65.510D.OPERATIVE PROCEDURE:1. Right thumb wound debridement and secondary repair, code 43862.2. Right index wound debridement, code 07600.3. Right index repair of flexor digitorum superficialis, code 85772.4. Right index repair of flexor digitorum profundus, code 10701.5. Right index repair of ulnar proper digital artery, code 37397/82689 under operating microscope.6. Right index repair of ulnar proper digital nerve, code 25284/01444 under operating microscope.SURGEON:Rudolph Zamarripa MDANESTHESIA:General.INDICATION FOR SURGERY:A 27-year-old male, lacerated himself with a kitchen knife, thumb and index, lost all capacity for flexion, and went numb on the ulnar side of the digit, bled consistent with arterial laceration, stopped soon thereafter with pressure and dressing, seen in the ER, identified for injuries, referred herefor definitive surgical repair. Now with the patient and family members ahead of time, explained everything to them in great detail, including all about extending the wounds to capture the tendons proximally and distally, make the repairs, explained about no added pinch grasp to the tendons early after repair can cause rupture, the importance of getting into early therapy and making full range gliding exercises with minimal force, no direct pressure over the nerve junctional site that can disrupt the nerve repair, all the important factors he needs to know along with the ten page written packet of instructions, made sure they had no questions. They confirmed theyunderstood everything well.Patient Name: FLAQUITO VALENTINO OF SURGERY:He was taken to the OR, prepped and draped sterilely under tourniquet control.Started with the thumb wound debridement. Distal margin is tattered, irregular, and obliquely cut. Both margins were then trimmed away at the submillimeter level with a sharp 15 blade. Depth of the wound was cleaned thoroughly with tenotomies, rongeur and sterile sponges. Verified that therewas no deep structural injury. Skin wounds closed with 5-0 nylon.Attention turned to the index. Same steps were taken at skin, subcutaneous level and deep fascia level, trimming tattered fascia and tattered edges of the sheath to keep the proximal 70 percent of the A2 intact and all of the [id number], the lacerations occurring in between, the rest of that sheath is disrupted by the injury. Confirmed the integrity of the radial neurovascularbundle, confirmed complete laceration of the ulnar neurovascular bundle. Wound was extended exactly as explained, proximal and distal on the ulnar side, tacking back the skin flaps. It is not possible to reach the flexors, reaching down inside the A2 lucia. Therefore, necessary to make a separate oblique cut over the proximal end of the A1. Here, we captured the tendons, feed them back down to the lucia system keeping A1 and A2 intact, exiting now at the distal end of A2, captured here, drawn out. First, the FDS, pinned against retraction, abutting the 2 tails. The injury occurs just at the flat section of decussating fibers rather than independent 2 tails. Therefore, we have a continuous repair across both distally. The 2 tails were proximally to continuous sheet of tissue. 4-0 PDS was used for this repair. We used triple locks both proximal and distal, both on the radial and ulnar sides, done in a fashion that did not bunch or gather the tendons, but keeps the profile flat, which provides a floor over which the FDP will have excursion. The knots were hidden on the dorsal side of the FDSrepair so that only the running portion and the locks that present themselvesin a volar direction, that way there was no excursion of the FDP catching on the knots that repair the FDS. We then switched out and pulled the FDP out to length, pinned it against retraction, curbed epitenon first, 6-0 PDS repair, all except the volar section, left open for the knot tying and then the strength core sutures with 3-0 Ethibond, used triple locks independently,pre-tensioned in each of the 4 lock points, radial and ulnar, proximal and distal, greater than a centimeter away from the junctional line, and with independent pre-tensioning, the tension is shared correctly, 5 square knot rows within the repair site and then finishing off the epitenon, captures theknot and buries it in there, so there is nothing to interfere with excursion. Smooth profile tendon. We then tested its excursion, it does not bind on tothe A4 lucia distally or the A2 lucia proximally and does not catch againstthe FDS. We have a smooth excursion. Both tendons are free, tested against full extension, repeat of cycles and there was no gapping, a strong repair, ready for normal proactive full range therapy program that is standard for this practice. Scope was brought in at that point in time. Micro backgroundPatient Name: FLAQUITO VALENTINO OF SURGERY:He was taken to the OR, prepped and draped sterilely under tourniquet control.Started with the thumb wound debridement. Distal margin is tattered, irregular, and obliquely cut. Both margins were then trimmed away at the submillimeter level with a sharp 15 blade. Depth of the wound was cleaned thoroughly with tenotomies, rongeur and sterile sponges. Verified that therewas no deep structural injury. Skin wounds closed with 5-0 nylon.Attention turned to the index. Same steps were taken at skin, subcutaneous level and deep fascia level, trimming tattered fascia and tattered edges of the sheath to keep the proximal 70 percent of the A2 intact and all of the [id number], the lacerations occurring in between, the rest of that sheath is disrupted by the injury. Confirmed the integrity of the radial neurovascularbundle, confirmed complete laceration of the ulnar neurovascular bundle. Wound was extended exactly as explained, proximal and distal on the ulnar side, tacking back the skin flaps. It is not possible to reach the flexors, reaching down inside the A2 lucia. Therefore, necessary to make a separate oblique cut over the proximal end of the A1. Here, we captured the tendons, feed them back down to the lucia system keeping A1 and A2 intact, exiting now at the distal end of A2, captured here, drawn out. First, the FDS, pinned against retraction, abutting the 2 tails. The injury occurs just at the flat section of decussating fibers rather than independent 2 tails. Therefore, we have a continuous repair across both distally. The 2 tails were proximally to continuous sheet of tissue. 4-0 PDS was used for this repair. We used triple locks both proximal and distal, both on the radial and ulnar sides, done in a fashion that did not bunch or gather the tendons, but keeps the profile flat, which provides a floor over which the FDP will have excursion. The knots were hidden on the dorsal side of the FDSrepair so that only the running portion and the locks that present themselvesin a volar direction, that way there was no excursion of the FDP catching on the knots that repair the FDS. We then switched out and pulled the FDP out to length, pinned it against retraction, curbed epitenon first, 6-0 PDS repair, all except the volar section, left open for the knot tying and then the strength core sutures with 3-0 Ethibond, used triple locks independently,pre-tensioned in each of the 4 lock points, radial and ulnar, proximal and distal, greater than a centimeter away from the junctional line, and with independent pre-tensioning, the tension is shared correctly, 5 square knot rows within the repair site and then finishing off the epitenon, captures theknot and buries it in there, so there is nothing to interfere with excursion. Smooth profile tendon. We then tested its excursion, it does not bind on tothe A4 lucia distally or the A2 lucia proximally and does not catch againstthe FDS. We have a smooth excursion. Both tendons are free, tested against full extension, repeat of cycles and there was no gapping, a strong repair, ready for normal proactive full range therapy program that is standard for this practice. Scope was brought in at that point in time. Micro backgroundPatient Name: FLAQUITO VALENTINO set, micro instruments are used to trim off the traumatized ends of all 4 ends, to artery, to nerve, repair the artery first as it is deeper, brought in a clamp, used vessel dilator, stripped the adventitia, irrigated the vessel lumens to confirm its quality intima, repaired using one way up with a 10-0 nylon suture. No problems. Took off the clamps, retrimmed the nerve endings with serrated scissors, perpendicular, used 9-0 nylon at this time, epineurial sleeve repair and before placing the final suture, we trimmed the fascicles, from both proximal and distal ends to ensure that there is neithercrimps nor escaping fascicle and it is a smooth tubular sleeve encasing all the fascicles for crossing to the other side and proper matching. This repair was tested against full length excursion as well and particularly important the nerve does not come under excess tension when the digit is in full extension, so we can follow a normal tendon rehabilitation program. Index wounds and the palm wound were closed with 5-0 nylon suture. Dressingswere applied. Xeroform gauze and Coban to dress the wounds initially, followed by Webril, and an Intrinsic Plus protective splint for the flexor tendons in the normal fashion.MARCIN Harrell/DAVY/CELESTINA/SUB/BALDD: 11/07/2017 11:22TD: 11/07/2017 16:20Job #: [id number]:Rudolph Zamarripa MD([employer])Patient Name: FLAQUITO VALENTINO set, micro instruments are used to trim off the traumatized ends of all 4 ends, to artery, to nerve, repair the artery first as it is deeper, brought in a clamp, used vessel dilator, stripped the adventitia, irrigated the vessel lumens to confirm its quality intima, repaired using one way up with a 10-0 nylon suture. No problems. Took off the clamps, retrimmed the nerve endings with serrated scissors, perpendicular, used 9-0 nylon at this time, epineurial sleeve repair and before placing the final suture, we trimmed the fascicles, from both proximal and distal ends to ensure that there is neithercrimps nor escaping fascicle and it is a smooth tubular sleeve encasing all the fascicles for crossing to the other side and proper matching. This repair was tested against full length excursion as well and particularly important the nerve does not come under excess tension when the digit is in full extension, so we can follow a normal tendon rehabilitation program. Index wounds and the palm wound were closed with 5-0 nylon suture. Dressingswere applied. Xeroform gauze and Coban to dress the wounds initially, followed by Webril, and an Intrinsic Plus protective splint for the flexor tendons in the normal fashion.MARCIN Harrell/DAVY/CELESTINA/CELESTINA/BALDD: 11/07/2017 11:22TD: 11/07/2017 16:20Job #: [id number]:Rudolph Zamarripa MD([employer])Electronically Authenticated by:Rudolph Zamarripa MD On 11/08/2017 07:44 AM CSTOPOperative [id number] for patient [id number]:44:31 [facility]
[2023-09-24 08:44] LABS: SARS-CoV-2 Antigen Rapid Res Negative (Negative)
--- NOTE | 2023-09-24 09:17 | EDPHYS ---
Physician Documentation [facility] Name: Arik Perez Age: 33 yrs Sex: Male : 1990 Arrival Date: 09/24/2023 Time: 07:50 Bed 13 Private MD: ED Physician Ricardo Sutherland HPI: 09/24 08:25 This 33 yrs old Male presents to ER via Ambulatory with complaints of Sore Throat. sp3 08:25 33-year-old male with no past medical history presents with a 6-day history of sore sp3 throat that is progressively getting worse along with hoarse voice. He denies any other symptoms including headache, nasal drainage, productive cough, chest pain, shortness of breath, neck pain, abdominal pain, vomiting, diarrhea, syncope, neurological symptoms, known sick contacts, travel history, or any other sinus symptoms on ROS at this time.. Historical: - Allergies: 08:04 Ibuprofen; hb - Home Meds: 08:04 None [Active]; hb - PMHx: 08:04 None; hb - PSHx: 08:04 Hand - Right; hb - Immunization history:: Adult Immunizations up to date. - Social history:: Smoking status: Patient reports the use of cigarette tobacco products, smokes one-half pack cigarettes per day. ROS: 08:26 Constitutional: Negative for fever, chills, and weight loss, Eyes: Negative for injury, sp3 pain, redness, and discharge, Neck: Negative for injury, pain, and swelling, Cardiovascular: Negative for chest pain, palpitations, and edema, Respiratory: Negative for shortness of breath, cough, wheezing, and pleuritic chest pain, Abdomen/GI: Negative for abdominal pain, nausea, vomiting, diarrhea, and constipation, Back: Negative for injury and pain, MS/Extremity: Negative for injury and deformity, Skin: Negative for injury, rash, and discoloration, Neuro: Negative for headache, weakness, numbness, tingling, and seizure, Psych: Negative for depression, anxiety, suicide ideation, homicidal ideation, and hallucinations, Allergy/Immunology: Negative for hives, rash, and allergies, 08:26 All other systems are negative, Exam: 08:26 Constitutional: This is a well developed, well nourished patient who is awake, alert, sp3 and in no acute distress. Head/Face: Normocephalic, atraumatic. Eyes: Pupils equal round and reactive to light, extra-ocular motions intact. Lids and lashes normal. Conjunctiva and sclera are non-icteric and not injected. Cornea within normal limits. Periorbital areas with no swelling, redness, or edema. Neck: Trachea midline, no thyromegaly or masses palpated, and no cervical lymphadenopathy. Supple, full range of motion without nuchal rigidity, or vertebral point tenderness. No Meningismus. Chest/axilla: Normal chest wall appearance and motion. Nontender with no deformity. No lesions are appreciated. Cardiovascular: Regular rate and rhythm with a normal S1 and S2. No gallops, murmurs, or rubs. Normal PMI, no JVD. No pulse deficits. Respiratory: Lungs have equal breath sounds bilaterally, clear to auscultation and percussion. No rales, rhonchi or wheezes noted. No increased work of breathing, no retractions or nasal flaring. Abdomen/GI: Soft, non-tender, with normal bowel sounds. No distension or tympany. No guarding or rebound. No evidence of tenderness throughout. Back: No spinal tenderness. No costovertebral tenderness. Full range of motion. Skin: Warm, dry with normal turgor. Normal color with no rashes, no lesions, and no evidence of cellulitis. MS/ Extremity: Pulses equal, no cyanosis. Neurovascular intact. Full, normal range of motion. Neuro: Awake and alert, GCS 15, oriented to person, place, time, and situation. Cranial nerves II-XII grossly intact. Motor strength 5/5 in all extremities. Sensory grossly intact. Cerebellar exam normal. Normal gait. Psych: Awake, alert, with orientation to person, place and time. Behavior, mood, and affect are within normal limits. 08:26 ENT: Mild pharyngeal erythema noted. No tonsillar shift, swelling or uvular shift noted.. Vital Signs: 08:03 BP 125 / 86; Pulse 84; Resp 16; Temp 98.7(O); Pulse Ox 100% on R/A; Weight 71.67 kg; hb Height 5 ft. 11 in. ; Pain 6/10; 08:03 Body Mass Index 22.04 (71.67 kg, 180.34 cm) hb 08:03 Pain Scale: Adult hb MDM: 07:56 Patient medically screened. sp3 08:27 Data reviewed: vital signs, nurses notes, lab test result(s). ED course: 33-year-old sp3 male with sore throat for 6 days. Differential diagnosis includes strep throat, viral infection including COVID-19 and influenza and or other viral process. I am not highly suspicious for peritonsillar abscess, airway compromise, sepsis, shock or any other critical process at this time.. 09:15 ED course: Swabs are all negative. Will place patient on Augmentin for pharyngitis and sp3 discharged home.. 09/24 08:00 Order name: Strep sp3 09/24 08:00 Order name: SARS RAPID; Complete Time: 08:53 sp3 09/24 08:00 Order name: Flu; Complete Time: 09:15 sp3 09/24 08:46 Order name: Throat Culture EDMS Administered Medications: No medications were administered Disposition Summary: 09/24/23 09:16 Discharge Ordered Notes: Location: Home sp3 Condition: Stable sp3 Diagnosis - Acute laryngopharyngitis sp3 Followup: sp3 - With: Private Physician - When: As needed - Reason: Continuance of care Discharge Instructions: - Discharge Summary Sheet sp3 - Pharyngitis sp3 Forms: - Work release form eb - Medication Reconciliation Form sp3 - Thank You Letter sp3 - Antibiotic Education sp3 - Prescription Opioid Use sp3 - Patient Portal Instructions sp3 - Leadership Thank You Letter sp3 Prescriptions: - Augmentin 875-125 mg Oral tablet - take 1 tablet ORAL route every 12 hours for 7 days; 14 tablet; Refills: 0, sp3 Product Selection Permitted Signatures: Dispatcher [employer] EDMS Alison Monteiro RN RN Ricardo Coronado MD MD sp3 Corrections: (The following items were deleted from the chart) 08:05 08:04 Social history: Smoking status: Patient denies any tobacco usage or history of. hbhb
--- NOTE | 2023-09-24 09:17 | ER ---
Nurse's Notes [facility] Name: Arik Perez Age: 33 yrs Sex: Male : 1990 Arrival Date: 09/24/2023 Time: 07:50 Bed 13 Private MD: Diagnosis: Acute laryngopharyngitis Presentation: 09/24 08:03 Chief complaint: Sore throat and cough x 1 week. Coronavirus screen: Client presents hb with at least one sign or symptom that may indicate coronavirus-19. Provider contacted for isolation considerations. Ebola Screen: No symptoms or risks identified at this time. Initial Sepsis Screen: Does the patient meet any 2 criteria? No. Patient's initial sepsis screen is negative. Does the patient have a suspected source of infection? No. Patient's initial sepsis screen is negative. Risk Assessment: Do you want to hurt yourself or someone else? Patient reports no desire to harm self or others. Onset of symptoms was September 17, 2023. 08:03 Method Of Arrival: Ambulatory hb 08:03 Acuity: TIMI 4 hb Historical: - Allergies: 08:04 Ibuprofen; hb - Home Meds: 08:04 None [Active]; hb - PMHx: 08:04 None; hb - PSHx: 08:04 Hand - Right; hb - Immunization history:: Adult Immunizations up to date. - Social history:: Smoking status: Patient reports the use of cigarette tobacco products, smokes one-half pack cigarettes per day. Screenin:08 [facility] ED Fall Risk Assessment (Adult) Score/Fall Risk Level 0 - 2 = Low Risk hb Oriented to surroundings, Maintained a safe environment, Educated pt \T\ family on fall prevention, incl call for assistance when getting out of bed. Abuse screen: Denies threats or abuse. Denies injuries from another. Nutritional screening: No deficits noted. Tuberculosis screening: No symptoms or risk factors identified. Assessment: 08:05 General: Appears in no apparent distress. Behavior is calm, cooperative. Pain: Pain hb currently is 6 out of 10 on a pain scale. Neuro: Level of Consciousness is awake, alert, obeys commands, Oriented to person, place, time, situation. Cardiovascular: Patient's skin is warm and dry. Respiratory: Respiratory effort is even, unlabored, Respiratory pattern is regular, symmetrical. GI: No signs and/or symptoms were reported involving the gastrointestinal system. : No signs and/or symptoms were reported regarding the genitourinary system. EENT: Reports sore throat. Derm: Skin is pink, warm \T\ dry. Musculoskeletal: No signs and/or symptoms reported regarding the musculoskeletal system. 09:09 Reassessment: Patient appears in no apparent distress at this time. Patient and/or hb family updated on plan of care and expected duration. Pain level reassessed. Patient is alert, oriented x 3, equal unlabored respirations, skin warm/dry/pink. Vital Signs: 08:03 BP 125 / 86; Pulse 84; Resp 16; Temp 98.7(O); Pulse Ox 100% on R/A; Weight 71.67 kg; hb Height 5 ft. 11 in. ; Pain 6/10; 08:03 Body Mass Index 22.04 (71.67 kg, 180.34 cm) hb 08:03 Pain Scale: Adult hb ED Course: 07:52 Patient arrived in ED. rg4 07:56 Ricardo Sutherland MD is Attending Physician. sp3 08:04 Triage completed. hb 08:05 Arm band placed on. hb 09:08 Patient has correct armband on for positive identification. Provided Education on: hb tests, result times. 09:08 No provider procedures requiring assistance completed. Patient did not have IV access hb during this emergency room visit. Administered Medications: No medications were administered Medication: 09:08 VIS not applicable for this client. hb Outcome: 09:16 Discharge ordered by . sp3 09:28 Discharged to home ambulatory, hb 09:28 Condition: stable 09:28 Discharge instructions given to patient, Instructed on discharge instructions, follow up and referral plans. medication usage, Demonstrated understanding of instructions, follow-up care, medications, Prescriptions given X 1, 09:28 Patient left the ED. hb Signatures: Alison Monteiro RN RN Angeles Hercules rg4 Ricardo Sutherland MD MD sp3 Corrections: (The following items were deleted from the chart) 08:05 08:04 Social history: Smoking status: Patient denies any tobacco usage or history of. hbhb
[2023-09-24 12:28] VITALS: BP 125/86; TEMP 98.7; O2SAT 100
== END ==
LOC: ER 07:50
DX: J06.0 Acute laryngopharyngitis (principal); Z11.52 Encounter for screening for COVID-19
CPT/HCPCS: 36415; 87070; 87081; 87804; 87811; 99283

== ENCOUNTER 2024-09-28 17:12 | Emergency (ER) | payer OTHER, SELFPAY ==
--- OUTSIDE RECORDS SUMMARY | 2024-09-28 17:15 | XMS REPORT | Continuity of Care Document ---
Author Name Unknown Address [address] [place] [address] [facility] thconnect Address [address] [place] [address] Care Team Providers Care Health Plan Advisor Name Role Phone RUDOLPH ZAMARRIPA Primary Care Physician Unavailab Bella Alberto Attending Clinician Unavailable Bella Cevallos Attending Clinician [phone] SONIA DYE Attending Clinician Unavailab [facility], [facility] Attending Clinician Unavailable Sonia Ramirez Attending Clinician + [phone] Marcy Curiel Attending Clinician [phone] MARCY ZURITA Attending Clinician Unavailtd e Doctor Unassigned, [place] Attending Clinician U RUDOLPH Bradshaw M.D., Lizzie GALDAMEZ Attending Clinic wanda Unavailable RUDOLPH ZAMARRIPA M.D., Lizzie GALDAMEZ Admitting Clinic wanda Unavailable Payers Payer Name Policy Type Policy Number Effective Date Expirati on Date Source [employer] 0-100% [id number] 2021 00:00:00 Problems Condition Name Condition Details Condition Category Status Onset Date Resolution Date Last Treatment Date Treating Clinician Comments Source Penile discharge Penile discharge Disease Active 2020-09 00:00: 00 [facility] Exposure to sexually transmitte d disease (STD) Exposure to sexually transmitte d disease (STD) Disease Active 2020-09 00:00: 00 [facility] Tobacco use Tobacco use Disease Active 2020-09 00:00: 00 [facility] Allergies, Adverse Reactions, Alerts Allergy Name Allergy Type Status Severity Reaction(s) Onset Date Inactive Date Treating Clinician Comments Source Ibuprofe n Propensi ty to adverse reaction s Active Unknown - See comments 2020-09 00:00: 00 [facility] IBUPROFE N DRUG INGREDI Active Unknown-Cmnt 2020-09 00:00: 00 [facility] NO KNOWN ALLERGIE S Drug Class Active [facility] Social History Social Habit Start Date Stop Date Quantity Comments Source History of tobacco use Cigarette Smoker [facility] Exposure to SARS-CoV-2 (event) 2022-09-29 00:00:00 2022-10-09 13:22:00 Not sure [facility] Alcohol intake 2022-10-09 00:00:00 2022-10-09 00:00:00 Ex-drinker (finding) [facility] Tobacco use and exposure 2021-06-25 00:00:00 2021-06-25 00:00:00 Smokeless tobacco non-user [facility] Sex Assigned At 1990 00:00:00 1990 00:00:00 [facility] Smoking Status Start Date Stop Date Source Smokes tobacco daily 2021-06-25 00:00:00 [facility] Medications Ordered Medication Name Filled Medication Name [...]
D uration of Therapy: Other (see Comments) [facility] doxycycline hyclate (Vibramycin ) capsule 100 mg 10-09 19:15: 00 10-09 19:19 :00 No 100mg 100 mg, Oral, ONCE, 1 dose, On Wed10/09/22 at 1315, JOSE FRANCISCO
Re ason for Anti-Infec tive: Documented Infection< br>Documen tony Infection Site: Urine
D uration of Therapy: 10 days [facility] doxycycline hyclate 100 mg capsule 10-09 00:00: 00 Yes [id number] 100mg Take 1 capsule by mouth in the morning and 1 capsule in the evening. [facility] cefTRIAXone (ROCEPHIN) injection 500 mg 2020-09 15:45: 00 06-25 15:11 :00 No [id number] 500mg [facility] No known medications 2020-09 09:43: 54 No [facility] azithromyci n (ZITHROMAX) 500 mg tablet 2020-09 00:00: 00 06-26 04:59 :00 No [id number] 1000mg Take 2 tablets by mouth once now for 1 dose. [facility] Vital Signs Vital Name Observation Time Observation Value Comments S our Systolic blood pressure 2022-10-09 17:53:00 126 mm[Hg] [facility] Diastolic blood pressure 2022-10-09 17:53:00 84 mm[Hg] [facility] Heart rate 2022-10-09 17:53:00 80 /min [facility] Body temperature 2022-10-09 17:53:00 37 Luz Maria [facility] Respiratory rate 2022-10-09 17:53:00 18 /min [facility] Body height 2022-10-09 17:53:00 180.3 cm [facility] Body weight 2022-10-09 17:53:00 78.472 kg [facility] BMI 2022-10-09 17:53:00 24.13 kg/m2 [facility] Oxygen saturation in Arterial blood by Pulse oximetry 2022-10-09 17:53:00 100 /min [facility] Systolic blood pressure 2021-06-25 14:21:00 133 mm[Hg] [facility] Diastolic blood pressure 2021-06-25 14:21:00 88 mm[Hg] [facility] Heart rate 2021-06-25 14:21:00 91 /min [facility] Body temperature 2021-06-25 14:21:00 36.72 Luz Maria [facility] Respiratory rate 2021-06-25 14:21:00 18 /min [facility] Body height 2021-06-25 14:21:00 180.3 cm [facility] Body weight 2021-06-25 14:21:00 76.885 kg [facility] BMI 2021-06-25 14:21:00 23.64 kg/m2 [facility] Procedures Procedure Date / Time Performed Performing Clinicia n Source NOTICE OF PRIVACY PRACTICES 2022-10-09 18:55:18 Doctor Unassigned, [place] [facility] URINALYSIS 2022-10-09 18:16:00 Bella Maldonado [facility] CONSENT/REFUSAL FOR DIAGNOSIS AND TREATMENT 2022-10-09 17:45:26 Doctor Unassigned, [place] [facility] Encounters Start Date/Time End Date/Time Encounter Type Admission Type Attending Clinicians Care Facility Care Department Encounter ID Source 2022-10-09 11:54:00 2022-10-09 13:23:00 Emergency X Bella MALDONADO [facility] ERT [id number] [facility] 2022-10-09 11:54:00 2022-10-09 13:23:00 Emergency Bella Maldonado [facility] [id number] [facility] 2021-09-25 08:30:00 2021-09-25 08:56:29 Outpatient SONIA RACHEL [facility] [id number] [facility] 2021-09-25 08:30:00 2021-09-25 08:56:29 [facility] OBGYN HOSPITALIST PHYSICIAN REGIONAL MATERNAL & CHILD [facility] [id number] [facility] 2021-07-09 00:00:00 2021-07-09 00:00:00 Telephone Marcy Zurita [facility] OBGYN HOSPITALIST PHYSICIAN [facility] & CHILD [facility] [id number] [facility] 2021-06-26 00:00:00 2021-06-26 00:00:00 Telephone Marcy Zurita [facility] OBGYN HOSPITALIST PHYSICIAN [facility] [id number] [facility] 2021-06-25 09:10:22 2021-06-25 10:07:11 Office Visit Marcy Zurita [facility] OBGYN HOSPITALIST PHYSICIAN [facility] & CHILD [facility] [id number] [facility] 2021-06-25 09:00:00 2021-06-25 09:00:00 Outpatient MARCY GOULD [facility] [id number] [facility] 2021-06-25 00:00:00 2021-06-25 00:00:00 Orders Only Doctor Unassigned, [place] [facility] [id number] [facility] 2017-11-07 08:56:00 2017-11-07 08:56:00 Outpatient RUDOLPH ZAZUETA M.D. [facility] MARIANO [id number] [facility]
--- NOTE | 2024-09-28 18:09 | RAD REPORT ---
EXAM: Chest Pa And Lat (2 Views) HISTORY: 34 years Male Cough;Chest pain COMPARISON: None. FINDINGS: LUNGS/PLEURA: The lungs are clear. No pleural effusions or pneumothorax. No pulmonary edema. MEDIASTINUM: The mediastinal silhouette is within normal limits. CARDIAC: The cardiac silhouette is within normal limits. UPPER ABDOMEN: No significant abnormality. BONES: No acute abnormality. LINES/TUBES/OTHER: N/A IMPRESSION: No evidence of acute cardiopulmonary disease.
[2024-09-28 18:19] LABS: SARS-CoV-2 Antigen CONTROL BLUE LINE VIS/BG OK; SARS-CoV-2 Antigen Rapid Res Negative (Negative)
--- NOTE | 2024-09-28 18:49 | ER ---
Nurse's Notes [facility] Name: Arik Perez Age: 34 yrs Sex: Male : 1990 Arrival Date: 09/28/2024 Time: 17:12 Bed IW1 Private MD: Diagnosis: Cough Presentation: 09/28 17:24 Chief complaint: Patient states: Cough for 3 days. SOB and CP (when having a coughing ll1 fit) started today. Feels hot, but doesn't have thermometer at home. Some nausea. Coronavirus screen: Client denies travel out of the [place] in the last 14 days. congestion, cough unrelated to allergies, difficulty breathing, fatigue, headache, muscle pain, shortness of breath, sore throat, Client presents with at least one sign or symptom that may indicate coronavirus-19. Standard/surgical mask placed on the client. Ebola Screen: Patient denies travel to an Ebola-affected area in the 21 days before illness onset. Initial Sepsis Screen: Does the patient meet any 2 criteria? No. Patient's initial sepsis screen is negative. Does the patient have a suspected source of infection? No. Patient's initial sepsis screen is negative. Risk Assessment: Do you want to hurt yourself or someone else? Patient reports no desire to harm self or others. Onset of symptoms was September 26, 2024. 17:24 Method Of Arrival: Ambulatory ll1 17:24 Acuity: TIMI 3 ll1 Triage Assessment: 17:28 General: Appears in no apparent distress. Behavior is calm, cooperative, appropriate ll1 for age. Pain: Complains of pain in head Quality of pain is described as aching. EENT: Reports nasal congestion pain when swallowing. Neuro: Reports headache. Respiratory: Reports shortness of breath cough that is pain with cough. Historical: - Allergies: 17:26 Ibuprofen; ll1 - PMHx: 17:26 None; ll1 - PSHx: 17:26 Hand - Right; ll1 - Immunization history:: Adult Immunizations up to date. - Infectious Disease History:: Denies. - Social history:: Smoking status: Patient reports the use of cigarette tobacco products, smokes one-half pack cigarettes per day. Screenin:00 [facility] ED Fall Risk Assessment (Adult) History of falling in the last 3 months, bm8 including since admission No falls in past 3 months (0 pts) Confusion or Disorientation No (0 pts) Intoxicated or Sedated No (0 pts) Impaired Gait No (0 pts) Mobility Assist Device Used No (0 pt) Altered Elimination No (0 pt) Score/Fall Risk Level 0 - 2 = Low Risk Oriented to surroundings, Maintained a safe environment, Educated pt \T\ family on fall prevention, incl call for assistance when getting out of bed, Assessed \T\ reinforced patient's understanding of fall precautions, Hourly rounding (assess needs \T\ fall precautionary measures) done, Used ambulatory aids as needed (educated on \T\ assisted with), Used gait belt as appropriate. Abuse screen: Denies threats or abuse. Nutritional screening: No deficits noted. Tuberculosis screening: No symptoms or risk factors identified. 19:02 [facility] ED Fall Risk Assessment (Adult) History of falling in the last 3 months, ll1 including since admission No falls in past 3 months (0 pts) Confusion or Disorientation No (0 pts) Intoxicated or Sedated No (0 pts) Impaired Gait No (0 pts) Mobility Assist Device Used No (0 pt) Altered Elimination No (0 pt) Score/Fall Risk Level 0 - 2 = Low Risk Maintained a safe environment, Hourly rounding (assess needs \T\ fall precautionary measures) done. Abuse screen: Denies threats or abuse. Nutritional screening: No deficits noted. Tuberculosis screening: No symptoms or risk factors identified. Assessment: 19:00 Reassessment: Patient appears in no apparent distress at this time. Patient and/or bm8 family updated on plan of care and expected duration. Pain level reassessed. Patient is alert, oriented x 3, equal unlabored respirations, skin warm/dry/pink. General: Appears in no apparent distress. comfortable, Behavior is calm, cooperative, appropriate for age. Pain: Complains of pain in chest Pain does not radiate. Pain currently is 8 out of 10 on a pain scale. Pain began 2-3 days ago. Neuro: No deficits noted. Level of Consciousness is awake, alert, obeys commands, Oriented to person, place, time, situation, Appropriate for age. Cardiovascular: Reports chest pain, from continous cough. Respiratory: Reports cough that is Breath sounds are clear bilaterally. Vital Signs: 17:24 BP 143 / 97; Pulse 90; Resp 18; Temp 98.2; Pulse Ox 98% ; Weight 79.38 kg; Height 5 ft. ll1 11 in. ; Pain 8/10; 19:00 BP 137 / 78; Pulse 76; Resp 18; Temp 98.4; Pulse Ox 97% ; Pain 8/10; bm8 17:24 Body Mass Index 24.41 (79.38 kg, 180.34 cm) ll1 17:24 Pain Scale: Adult ll1 19:00 Pain Scale: Adult bm8 [place] Coma Score: 19:00 Eye Response: spontaneous(4). Motor Response: obeys commands(6). Verbal Response: bm8 oriented(5). Total: 15. ED Course: 17:23 Patient arrived in ED. al6 17:25 Desmond Matt PA is PHCP. cp 17:25 Desmond Rojas MD is Attending Physician. cp 17:26 Triage completed. ll1 17:27 Arm band placed on. ll1 17:34 Strep Sent. ll1 17:34 SARS RAPID Sent. ll1 17:34 Influenza Screen (a \T\ B) Sent. ll1 17:50 XRAY Chest Pa And Lat (2 Views) In Process Unspecified. EDMS 19:00 Patient has correct armband on for positive identification. Provided Education on: post bm8 er care. Client placed on continuous cardiac and pulse oximetry monitoring. NIBP monitoring applied. 19:02 Patient has correct armband on for positive identification. Bed in low position. ll1 Provided Education on: finish all prescribed antibiotics. Cardiac monitoring not applicable on this patient. 19:02 No provider procedures requiring assistance completed. Patient did not have IV access ll1 during this emergency room visit. Patient maintains SpO2 saturation greater than 95% on room air. Administered Medications: 18:43 CANCELLED (Physician Discretion): tussionex pennkinetic ersuspension 5 ml PO once cp 18:58 Drug: Tessalon Perle PO 200 mg PO once Route: PO; bm8 19:03 Follow up: Response: No adverse reaction bm8 19:03 Follow up: Response: No adverse reaction ll1 18:59 Drug: Acetaminophen PO 1000 mg PO once Route: PO; bm8 19:03 Follow up: Response: No adverse reaction bm8 19:03 Follow up: Response: No adverse reaction 1 Medication: 19:00 VIS not applicable for this client. bm8 Outcome: 18:49 Discharge ordered by . cp 19:00 Discharged to home ambulatory, with family, bm8 19:00 Condition: stable 19:00 Discharge instructions given to patient, family, Instructed on discharge instructions, follow up and referral plans. medication usage, Demonstrated understanding of instructions, follow-up care, medications, Prescriptions given X 3, 19:03 Discharged to home ambulatory, ll1 19:03 Condition: stable 19:03 Discharge instructions given to patient, family, Instructed on discharge instructions, follow up and referral plans. medication usage, Demonstrated understanding of instructions, follow-up care, medications, Prescriptions given X 3, 19:03 Patient left the ED. bm8 Signatures: Dispatcher [employer] EDMS Desmond Matt PA PA cp Logan Garcia RN RN ll1 Quinn Mccoy RN RN bm8 Alyssia [email or web address] Corrections: (The following items were deleted from the chart) 17:29 17:24 Chief complaint: Patient states: Cough for 3 days. SOB and CP started today. ll1 Feels hot, but doesn't have thermometer at home. Some nausea. ll1
--- NOTE | 2024-09-28 18:49 | EDPHYS ---
Physician Documentation [facility] Name: Arik Perez Age: 34 yrs Sex: Male : 1990 Arrival Date: 09/28/2024 Time: 17:12 Bed IW1 Private MD: ED Physician Desmond Rojas HPI: 09/28 17:40 This 34 yrs old Male presents to ER via Ambulatory with complaints of Swollen Glands, cp Chest Pain - with cough. 17:40 Onset: The symptoms/episode began/occurred 5 day(s) ago. cp 17:40 Associated signs and symptoms: Pertinent positives: congestion, cough, fever, shortness cp of breath, sore throat, Pertinent negatives: diarrhea, vomiting. Historical: - Allergies: 17:26 Ibuprofen; ll1 - PMHx: 17:26 None; ll1 - PSHx: 17:26 Hand - Right; ll1 - Immunization history:: Adult Immunizations up to date. - Infectious Disease History:: Denies. - Social history:: Smoking status: Patient reports the use of cigarette tobacco products, smokes one-half pack cigarettes per day. ROS: 17:45 Constitutional: Negative for body aches, chills, fever, poor PO intake, cp 17:45 Cardiovascular: Positive for chest pain, with cough, Negative for edema, palpitations, cp 17:45 Respiratory: Positive for cough, Negative for wheezing, 17:45 Abdomen/GI: Negative for abdominal pain, vomiting, diarrhea, constipation, Exam: 17:50 Constitutional: The patient appears in no acute distress, alert, awake, non-toxic, well cp developed, well nourished, 17:50 Head/Face: Normocephalic, atraumatic. cp 17:50 Eyes: Periorbital structures: appear normal, Conjunctiva: normal, no exudate, no injection, Sclera: no appreciated abnormality, Lids and lashes: appear normal, bilaterally, 17:50 ENT: External ear(s): are unremarkable, Nose: is normal, Mouth: Lips: moist, Oral mucosa: moist, Posterior pharynx: Airway: no evidence of obstruction, patent, Tonsils: no enlargement, no exudate, erythema, that is mild, exudate, is not appreciated, 17:50 Neck: ROM/movement: Meningeal signs: are not present, nuchal rigidity, is not appreciated, 17:50 Chest/axilla: Inspection: normal, 17:50 Cardiovascular: Rate: normal, Rhythm: regular, 17:50 Respiratory: the patient does not display signs of respiratory distress, Respirations: normal, no use of accessory muscles, no retractions, labored breathing, is not present, Breath sounds: decreased breath sounds, are not appreciated, stridor, is not appreciated, wheezing: is not appreciated, 17:50 Abdomen/GI: Inspection: abdomen appears normal, Palpation: abdomen is soft and non-tender, in all quadrants, 17:50 Back: pain, is absent, Vital Signs: 17:24 BP 143 / 97; Pulse 90; Resp 18; Temp 98.2; Pulse Ox 98% ; Weight 79.38 kg; Height 5 ft. ll1 11 in. ; Pain 8/10; 19:00 BP 137 / 78; Pulse 76; Resp 18; Temp 98.4; Pulse Ox 97% ; Pain 8/10; bm8 17:24 Body Mass Index 24.41 (79.38 kg, 180.34 cm) ll1 17:24 Pain Scale: Adult ll1 19:00 Pain Scale: Adult bm8 [place] Coma Score: 19:00 Eye Response: spontaneous(4). Motor Response: obeys commands(6). Verbal Response: bm8 oriented(5). Total: 15. MDM: 17:25 Medical Screening Exam initiated cp 18:48 Data reviewed: vital signs, nurses notes, lab test result(s), radiologic studies, plain cp films, and as a result, I will discharge patient. 18:48 Differential diagnosis: viral Infection, bacterial infection, bronchitis, pneumonia. cp Counseling: I had a detailed discussion with the patient and/or guardian regarding the historical points, exam findings, and any diagnostic results supporting the discharge/admit diagnosis, lab results, radiology results, to return to the emergency department if symptoms worsen or persist or if there are any questions or concerns that arise at home. 09/28 17:33 Order name: Strep cp 09/28 17:33 Order name: SARS RAPID; Complete Time: 18:47 cp 09/28 17:33 Order name: Influenza Screen (a \T\ B); Complete Time: 18:47 cp 09/28 18:21 Order name: Throat Culture EDPA 09/28 17:33 Order name: XRAY Chest Pa And Lat (2 Views); Complete Time: 18:47 cp 09/28 18:47 Interpretation: Report reviewed. cp Administered Medications: 18:43 CANCELLED (Physician Discretion): tussionex pennkinetic ersuspension 5 ml PO once cp 18:58 Drug: Tessalon Perle PO 200 mg PO once Route: PO; bm8 19:03 Follow up: Response: No adverse reaction bm8 19:03 Follow up: Response: No adverse reaction ll1 18:59 Drug: Acetaminophen PO 1000 mg PO once Route: PO; bm8 19:03 Follow up: Response: No adverse reaction bm8 19:03 Follow up: Response: No adverse reaction ll1 Disposition: 09/29 08:23 Chart complete. cp Disposition Summary: 09/28/24 18:49 Discharge Ordered Notes: Location: Home cp Problem: new cp Symptoms: have improved cp Condition: Stable cp Diagnosis - Cough cp Followup: cp - With: Private Physician - When: 2 - 3 days - Reason: Worsening of condition Discharge Instructions: - Discharge Summary Sheet cp - Cough, Adult cp Forms: - Medication Reconciliation Form cp - Antibiotic Education cp - Prescription Opioid Use cp - Patient Portal Instructions cp - Leadership Thank You Letter cp Prescriptions: - Bromfed DM 2-30-10 mg/5 mL Oral syrup - administer 10 milliliter ORAL route every 6 hours As needed as needed for cold cp symptoms; 240 milliliter; Refills: 0, Product Selection Permitted - albuterol sulfate 90 mcg/actuation Inhalation HFA Aerosol Inhaler - inhale 1 puff INHALATION route every 4 to 6 hours as needed for bronchospasm; cp administer via ventilator; 1 unit; Refills: 0, Product Selection Permitted - Zithromax Z-Geovani 250 mg Oral Tablet - take 1 tablet ORAL route as directed for 5 days Day 1 - take two (2) tablets cp one time. Day 2, 3, 4 , 5 take one (1) tablet once daily.; 6 tablet; Refills: 0, Product Selection Permitted Addendum: 10/04/2024 07:23 Co-signature as Attending Physician, Desmond Rojas MD I agree with the assessment and c delgado plan of care. Signatures: Dispatcher [employer] EDDesmond Killian MD MD cha Page, Corey, PA PA cp Logan Garcia RN RN ll1 Quinn Mccoy RN RN bm8 Corrections: (The following items were deleted from the chart) 09/28 18:43 17:33 Tussionex Pennkinetic ER PO Suspension 5 ml PO once ordered. cp cp
[2024-09-28] MEDS ORDERED: ACETAMINOPHEN 500 MG TAB ONE (18:52)
[2024-09-28] MEDS ORDERED: BENZONATATE 100 MG CAP PO ONE (18:58)
[2024-09-29 03:12] VITALS: BP 137/78; TEMP 98.4; O2SAT 97
== END 2024-09-28 19:03 | disposition home or self-care (01) ==
LOC: ER 17:12
DX: R05.9 Cough, unspecified (principal); F17.210 Nicotine dependence, cigarettes, uncomplicated; Z11.52 Encounter for screening for COVID-19
CPT/HCPCS: 36415; 71046; 87070; 87081; 87804; 87811; 99284